=== PATIENT | female | born 1945 | race African-American/Black ===

== ENCOUNTER 2017-01-10 08:49 | Emergency (ER) | payer MEDICARE ==
[2017-01-10] MEDS ORDERED: EPINEPHRINE INJ/PF 1 MG/1 ML AMPULE ONE (11:01)
[2017-01-10] MEDS ORDERED: FAMOTIDINE 20 MG TABLET ONE (11:02)
[2017-01-10] MEDS ORDERED: PREDNISONE 10 MG TABLET ONE (11:02)
== END 2017-01-10 12:00 | disposition home or self-care (01) ==
LOC: ER 08:49
DX: T78.1XXA Other adverse food reactions, not elsewhere classified, initial encounter (principal); R22.0 Localized swelling, mass and lump, head; X58.XXXA Exposure to other specified factors, initial encounter; E78.5 Hyperlipidemia, unspecified; I10 Essential (primary) hypertension; E11.9 Type 2 diabetes mellitus without complications; Z85.3 Personal history of malignant neoplasm of breast; Z90.710 Acquired absence of both cervix and uterus
CPT/HCPCS: 96372; 99283

== ENCOUNTER → 2017-08-17 | Outpatient (CLI) | payer MEDICARE | LOC: WI 08:07 | PROVIDERS: ATTEND Internal Medicine Geriatric Medicine | DX: Z12.31 Encounter for screening mammogram for malignant neoplasm of breast (principal) | CPT/HCPCS: 77063; G0202; 77067 ==

== ENCOUNTER → 2017-10-09 | Outpatient (CLI) | payer MEDICARE ==
--- NOTE | 2017-10-09 15:21 | RADIOLOGY REPORT (SQ) ---
EXAM DESCRIPTION: CT ABD/PELVIS WITH IV ORAL COMPLETED DATE/TIME: 10/09/2017 3:00 pm REASON FOR STUDY: ABDOMINAL PAIN R10.9 UNSPECIFIED ABDOMINAL PAIN COMPARISON: None. TECHNIQUE: CT scan of the abdomen and pelvis performed with intravenous and oral contrast using priyank froylan scanning technique with dynamic intravenous contrast injection. Images reviewed with lung, soft t issue, and bone windows. Reconstructed coronal and sagittal MPR images reviewed. Delayed images for e valuation of the urinary system also acquired. All images stored on PACS. All CT scanners at this facility use dose modulation, iterative reconstruction, and/or weight based d osing when appropriate to reduce radiation dose to as low as reasonably achievable (ALARA). [facility]: Dose Right [facility]: CareDose [facility]: Dose Right [facility]: Teradose 4D [facility]: English Helper CONTRAST TYPE AND DOSE: contrast/concentration: Isovue 370.00 mg/ml; Total Contrast Delivered: 75.0 ml; Total Saline Delivered: 64.0 ml RENAL FUNCTION: Creatinine 0.7. RADIATION DOSE: CT Rad equipment meets quality standard of care and radiation dose reduction techniq ues were employed. CTDIvol: 7.8 - 9.1 mGy. DLP: 835 mGy-cm.. LIMITATIONS: None. FINDINGS: LOWER CHEST: No significant findings. No nodules or infiltrates. LIVER: Normal size. Diffuse fatty infiltration. No masses. No dilated ducts. SPLEEN: Normal size. No focal lesions. PANCREAS: No masses. No significant calcifications. No adjacent inflammation or peripancreatic fluid collections. Pancreatic duct not dilated. GALLBLADDER: No identified stones by CT criteria. No inflammatory changes to suggest cholecystitis. ADRENAL GLANDS: No significant masses or asymmetry. RIGHT KIDNEY AND URETER: 2.5 cm cortical cyst in the upper pole. No solid masses. Punctate upper po le calyceal calculus. No hydronephrosis or hydroureter. LEFT KIDNEY AND URETER: No solid masses. No significant calcification. No hydronephrosis or hydrouret er. AORTA AND VESSELS: No aneurysm. No dissection. Renal arteries, SMA, celiac without stenosis. RETROPERITONEUM: No retroperitoneal adenopathy, hemorrhage or masses. BOWEL AND PERITONEAL CAVITY: No obstruction. No visualized masses. No free fluid. No inflammatory ch anges or thickening of bowel wall. APPENDIX: Normal. PELVIS: No significant masses. Normal bladder. No free fluid. ABDOMINAL WALL: No masses. No hernias. BONES: No significant or acute findings. OTHER: No other significant finding. IMPRESSION: 1. TINY NONOBSTRUCTING CALYCEAL CALCULUS IN THE UPPER POLE OF THE RIGHT KIDNEY. INCIDENTAL CORTICAL CYST. 2. NO OTHER SIGNIFICANT OR ACUTE FINDINGS IN THE ABDOMEN OR PELVIS. TECHNICAL DOCUMENTATION: JOB ID: [id number] Quality ID # [id number]: Final reports with documentation of one or more dose reduction techniques (e.g., Au tomated exposure control, adjustment of the mA and/or kV according to patient size, use of iterative reconstruction technique) 2010 [employer]- All Rights Reserved
== END ==
LOC: RAD 11:42
PROVIDERS: ATTEND Internal Medicine Geriatric Medicine
DX: R10.9 Unspecified abdominal pain (principal); N20.0 Calculus of kidney; N28.1 Cyst of kidney, acquired
CPT/HCPCS: 74177; 82565

== ENCOUNTER 2017-10-30 03:25 | Inpatient (IN) | payer MEDICARE ==
[2017-10-30] MEDS ORDERED: FAMOTIDINE INJ/PF 20 MG/2 ML SDV IV ONE ×2 (03:33→03:36)
[2017-10-30] MEDS ORDERED: DIPHENHYDRAMINE HCL 50 MG/ML VIAL IV ONE ×2 (03:33→10:45)
[2017-10-30] MEDS ORDERED: NORMAL SALINE 250 ML IV PRN ×2 (03:33→04:56)
[2017-10-30] MEDS ORDERED: EPINEPHRINE INJ/PF 1 MG/1 ML AMPULE IM ONE ×2 (03:33→04:40)
[2017-10-30] MEDS ORDERED: METHYLPREDNISOLONE INJ 125 MG/2 ML SDV IV ONE ×2 (03:33→08:30)
[2017-10-30] MEDS ORDERED: EPINEPHRINE INJ/PF 1 MG/1 ML AMPULE ONE (03:36)
[2017-10-30] MEDS ORDERED: METHYLPREDNISOLONE INJ 125 MG/2 ML SDV ONE (03:36)
[2017-10-30] MEDS ORDERED: DIPHENHYDRAMINE HCL 50 MG/ML VIAL ONE (03:36)
--- NOTE | 2017-10-30 03:40 | ER Document Report ---
Doctor's Note Notes: 10/30/17 03:38 Patient has severe angioedema with her tongue on to the point was fully obstructing her mouth and I cannot see beyond her tongue. She is not handling her secretions well. I have called the surgeon, Dr. Garrison, asked him to come the bedside in case patient needs surgical airway. I have also called the nursing supervisor electronics processing to call and anesthesia to try a nasal intubation with scope. Nursing supervisor electronics processing did call back and said anesthesia would be her in 5 minutes. 10/30/17 03:53
[2017-10-30] MEDS ORDERED: KETAMINE HCL INJ 500 MG/10 ML VIAL IV ONE (03:45)
[2017-10-30] MEDS ORDERED: ETOMIDATE INJ/PF 20 MG/10 ML SDV IV ONE ×2 (03:45→03:47)
[2017-10-30] MEDS ORDERED: KETAMINE HCL INJ 500 MG/10 ML VIAL ONE (03:47)
--- NOTE | 2017-10-30 04:25 | ER Document Report ---
ED General - General Chief Complaint: Lip Swelling Stated Complaint: DIFFICULTY BREATHING Time Seen by Provider: 10/30/17 03:33 Notes: Patient is 72-year-old female presents with complaint of difficulty breathing. Is mainly from the . Patient is unable to talk due to severe tongue swelling. She is able to write some things on paper to help give me some further history. She started having some swelling of her lips yesterday. Around midnight she started having tongue swelling. She came to the ER due to the progressing the tongue swelling. She feels as if she cannot swallow her saliva. She feels like it started to affect her breathing. Patient and did not have a med list with them. When I asked them if she is on lisinopril they say that they think that she is. TRAVEL OUTSIDE OF THE [place] IN LAST 30 DAYS: No - Related Data Allergies/Adverse Reactions: No Known Allergies Allergy (Unverified 10/30/17 03:40) Past Medical History - Social History Smoking Status: Unknown if Ever Smoked Frequency of alcohol use: None Drug Abuse: None Family History: Reviewed & Not Pertinent Patient has suicidal ideation: No Patient has homicidal ideation: No - Past Medical History Cardiac Medical History: Reports: Hx Hypercholesterolemia, Hx Hypertension Endocrine Medical History: Reports: Hx Diabetes Mellitus Type 2 Renal/ Medical History: Denies: Hx Peritoneal Dialysis GI Medical History: Reports: Hx Gastroesophageal Reflux Disease Review of Systems - Review of Systems Notes: My Normal Review Basic REVIEW OF SYSTEMS: CONSTITUTIONAL : Denies fever, chills, or sweats. Denies recent illness. EENT: Difficulty swallowing and breathing due to tongue swelling. CARDIOVASCULAR: Denies chest pain. RESPIRATORY: Denies cough, cold, or chest congestion. Some shortness of breath due to tongue swelling. GASTROINTESTINAL: Denies abdominal pain. No nausea. MUSCULOSKELETAL: Denies neck or back pain or joint pain or swelling. SKIN: Denies rash or skin lesions. Hives. No itching. NEUROLOGICAL: Denies altered mental status or loss of consciousness. Denies headache. Denies weakness or paralysis or loss of use of either side. Denies problems with gait or speech. Denies sensory or motor loss. ALL OTHER SYSTEMS REVIEWED AND NEGATIVE. Physical Exam - Vital signs Vitals: Temp Pulse Resp BP Pulse Ox 98.9 F 73 13 150/90 H 97 10/30/17 03:56 10/30/17 03:56 10/30/17 03:56 10/30/17 03:56 10/30/17 03:56 - Notes Notes: General Appearance: Well nourished, alert, cooperative, patient is holding a washcloth and continues to wipe her mouth because she cannot swallow her secretions. She lays flat she becomes very short of breath. She sits forward her breathing rate is controlled and she seems to be in control of her breathing. Vitals: reviewed, See vital signs table. Head: no swelling or tenderness to the head Eyes: PERRL, EOMI, Conjuctiva clear Mouth: Patient has very large swollen tongue. When patient opens her mouth I cannot see anything except her tongue. Throat: cannot see posterior pharynx. Neck: Supple, no neck tenderness, Lungs: No wheezing, No rales, No rhonci, No accessory muscle use, good air exchange bilaterally. Heart: Normal rate, Regular rythm, No murmur, no rub Abdomen: Normal BS, soft, No rigidity, No abdominal tenderness, No guarding, no rebound, Extremities: good pulses in all extremities, no swelling or tenderness in the extremities, no edema. Skin: warm, dry, appropriate color, no rash Neuro: oriented x 3, normal affect, responds appropriately to questions.. Course - Re-evaluation Re-evalutation: 10/30/17 04:15 Dr. Garrison, general surgeon, and Dr. Nance, the anestheiologist, came to bedside to evaluate the patient. The have discussed option of taking patient to the OR for surgical airway and also discussed scoping the patient for nasal intubation. They discussed these options with the patient and . At this time they have collected decided to withhold aggessive airway 10/30/17 04:57 Patient says that she now feels that her tongue swelling is a little bit better. She now has a very small gap of space above her tongue when she opens her mouth that she did not have before. I have called Dr. Olivo to request admission. Have not yet heard back. We will continue to closely monitor the patient. I have given the patient the call sands and informed her that if anytime she feels she is worsening even in the slightest she must have the call sands immediately. I will continue to closely reassess the patient. FFP has been ordered and is currently thawing. 10/30/17 05:14 I have spoken with Dr. Olivo. He agrees to admit the patient. 10/30/17 05:56 I just reevaluated the patient. Her tongue is now reduced a significant amount. Swelling is reduced by about half. Dictation of this chart was performed using voice recognition software; therefore, there may be some unintended grammatical errors. - Vital Signs Vital signs: Temp Pulse Resp BP Pulse Ox 98.9 F 73 13 150/90 H 97 10/30/17 03:58 10/30/17 03:58 10/30/17 03:58 10/30/17 03:58 10/30/17 03:58 - Laboratory Result Diagrams: 10/30/17 03:36 10/30/17 03:36 Laboratory results interpreted by me: 10/30/17 10/30/17 03:36 03:36 RDW 15.4 H BUN 21 H Glucose 143 H Discharge - Discharge Clinical Impression: Angioedema Qualifiers: Encounter type: initial encounter Qualified Code(s): T78.3XXA - Angioneurotic edema, initial encounter Condition: Stable Disposition: ADMITTED INPATIENT Admitting Provider: Pallavi Unit Admitted: ICU
[2017-10-30 05:27] LABS: ABSOLUTE BASOPHILS # (AUTO) 0.1 10^3/uL (0.0-0.2); ABSOLUTE EOSINOPHILS # (AUTO) 0.1 10^3/uL (0.0-0.6); ABSOLUTE LYMPHOCYTES (AUTO) 2.2 10^3/uL (0.5-4.7); ABSOLUTE MONOCYTES (AUTO) 0.5 10^3/uL (0.1-1.4); ABSOLUTE NEUT (AUTO) 4.5 10^3/uL (1.7-8.2); BASOPHILS % (AUTO) 0.9 % (0-2); EOSINOPHILS % (AUTO) 1.4 % (0-6); HEMATOCRIT 45.7 % (36.0-47.0); LYMPHOCYTES % (AUTO) 29.1 % (13-45); MEAN CORPUSCULAR HEMOGLOBIN 28.9 pg (27.0-33.4); MEAN CORPUSCULAR HGB CONC 32.8 g/dL (32.0-36.0); MEAN CORPUSCULAR VOLUME 88 fl (80-97); MONOCYTES % (AUTO) 7.3 % (3-13); PLATELET COUNT 178 10^3/uL (150-450); RED BLOOD COUNT 5.19 10^6/uL (3.72-5.28); RED CELL DISTRIBUTION WIDTH 15.4 % (11.5-14.0); SEGMENTED NEUTROPHILS % (AUTO) 61.3 % (42-78); TOTAL CELLS COUNTED % (AUTO) 100 %; WHITE BLOOD COUNT 7.4 10^3/uL (4.0-10.5)
[2017-10-30 05:37] LABS: ANION GAP 12 (5-19); BLOOD UREA NITROGEN 21 mg/dL (7-20); CALCIUM 10.2 mg/dL (8.4-10.2); CARBON DIOXIDE 30 mmol/L (22-30); CHLORIDE 102 mmol/L (98-107); GLUCOSE 143 mg/dL (75-110); SODIUM 144.2 mmol/L (137-145)
--- NOTE | 2017-10-30 06:35 | CONSULTATION REPORT E ---
Consultation Report NAME: SHARDA BENSON : 1945 AGE: 72Y DATE: 10/30/2017 ED23 A TO: SHARON MELENDEZ M.D. FROM: KRYSTINA RIVERA M.D. Requesting Physician Patient seen at the request of Dr. Albert Hope. CHIEF COMPLAINT: Potential loss of airway due to angioedema. REPORT OF CONSULTATION: The patient is a 72-year-old -[place] female with a history of diabetes, hypertension, hypercholesterolemia with a previous known history of angioedema felt secondary to lisinopril, who presented to the emergency department with swelling of the lips and tongue. She was brought by a ground rescue to the emergency department at [facility] where she could not speak, and had significant swelling of her lips and tongue. Surgery and Anesthesia were consulted. When I arrived in the emergency department, approximately 15 minutes after the patient's arrival to [place], the patient had received racemic epi, Benadryl, and Solu-Medrol. The patient was anxious, but in no acute distress. Consultation was had between the emergency department, Anesthesia, and Surgery, and the decision was made to not attempt to intubate the patient as she was maintaining her airway satisfactorily and not clinically deteriorating. PAST MEDICAL AND SURGICAL HISTORY: As per HPI. Patient has a history of previous angioedema flareup managed without intubation. LOCAL MEDICAL DOCTOR: Dr. Rivera MEDICATIONS: Include lisinopril. ALLERGIES: None known. SOCIAL HISTORY: The patient does not smoke. REVIEW OF SYSTEMS: Cannot be obtained as patient cannot communicate except by writing. PHYSICAL EXAMINATION: VITAL SIGNS: Blood pressure 150/90, temperature 98.9, pulse 73, oxygen saturation on room air 97%. GENERAL: The patient is awake, alert, and cooperative. She is mildly anxious. She followed commands appropriately. HEENT: Eyes without icterus. There is [id number] swelling of the lips and tongue, such that the oropharynx can be examined only by pushing the tongue caudad. The patient cannot phonate. She is spitting up some mucus. The nasal cavity appears uninvolved. NECK: The patient's neck is examined. There is no edema or crepitus. The larynx appears midline. LUNGS: Clear to auscultation bilaterally. HEART: Without murmur or gallop. The remaining examination is grossly unremarkable. LABORATORY PROFILE: Pending. IMPRESSION: Acute laryngioedema with threatened, but not loss of airway in 72-year-old -[place] female on lisinopril; second episode. RECOMMENDATIONS: 1. I have observed the patient now for approximately 40 minutes in the emergency department with Dr. Hope. The patient remains in no acute distress, calm, and feels her breathing is a little bit better. Furthermore, she does not desaturate when her head of bed is lowered. Clinically, the amount of tongue and lip edema is no worse and may be a little bit better after receiving the emergency medications. 2. Therefore, with Dr. Nance, anesthesiologist, as well as forestry biology specialist present, we have elected to not mechanically establish an airway for this patient at this time. We recommend the patient be admitted to the ICU for continued observation, and scheduled doses of steroids. DICTATING PHYSICIAN: SHARON MELENDEZ M.D. [id number] PHY#: [id number] ID: [id number] JOB#: [id number] ACCT: [id number] cc:SHARON MELENDEZ M.D. >
[2017-10-30] MEDS ORDERED: DEXTROSE 50%-WATER 25 GM/50 ML DISP.SYRIN IV PRN ×2 (07:55)
[2017-10-30] MEDS ORDERED: GLUCAGON,HUMAN RECOMB 1 MG INJ SUBCUT PRN (07:55)
[2017-10-30] MEDS ORDERED: DEXTROSE 40% GEL 15 GM TUBE PO PRN ×2 (07:55)
[2017-10-30] MEDS ORDERED: DIPHENHYDRAMINE HCL 25 MG CAPSULE PO SCH (08:00)
--- NOTE | 2017-10-30 08:40 | PDOC H&P ---
History of Present Illness Admission Date/PCP: 10/30/17 05:31 KRYSTINA RIVERA MD Patient complains of: Difficulty with breathing History of Present Illness: SHARDA BENSON is a 72 year old female known to my practice who presented to the ED early hours of today with worsening tong and lip swelling and associated difficulty with breathing. Patient reported onset of lip swelling a day prior to presentation and worsening tongue swelling to the point of difficulty with speaking and breathing. Her presentation in the ED was significant for difficulty with breathing with near complete occlusion of the airway and difficulty with control of salivation. She was initially treated with Epinephrine, Pepcid and IV Solu-Medrol with some improvement that avert intubation procedure. She denied recent use of OTC NSAID. She reported family and self history of angioedema after consumption of shrimps. She has been on her current anti HTN medication including Valsartan for many years. Not currently on LAZARO-I. She admitted to eating shrimp on preceding Sunday and Sunday prior to her presentation her presentation. At the time of my evaluation she was not able to verbalize adequately but her lip and tongue swelling are improving as per her and spouse account at bedside. Her morbidities include Hypertension, Hyperlipidemia, Diabetes Mellitus Type 2, and Gastroesophageal Reflux Disease. Past Medical History Cardiac Medical History: Reports: Hyperlipidema, Hypertension Endocrine Medical History: Reports: Diabetes Mellitus Type 2 GI Medical History: Reports: Gastroesophageal Reflux Disease Social History Smoking Status: Unknown if Ever Smoked Family History Family History: Reviewed & Not Pertinent Parental Family History Reviewed: Yes Children Family History Reviewed: Yes Sibling(s) Family History Reviewed.: Yes Medication/Allergy Home Medications: Alprazolam [Xanax 0.25 mg Tablet] 0.25 mg PO DAILYP PRN 10/30/17 Amlodipine Besylate [Norvasc 5 mg Tablet] 5 mg PO DAILY 10/30/17 Aspirin [Ecotrin 81 mg EC Tablet] 81 mg PO QHS 10/30/17 Atorvastatin Calcium [Lipitor 20 mg Tablet] 20 mg PO QHS 10/30/17 Calcium Carbonate/Vitamin D3 [Calcium 600 + Vit D Tablet] 1 tab PO QAM 10/30/17 Citalopram Hydrobromide [Celexa 10 mg Tablet] 10 mg PO QHS 10/30/17 Fluticasone Propionate [Flonase Nasal Sultan 50 Mcg/Sultan 16 gm] 2 spray NASL DAILY 10/30/17 Metformin HCl [Glucophage 500 mg Tablet] 500 mg PO BID 10/30/17 Metoprolol Tartrate [Lopressor 50 mg Tablet] 50 mg PO Q12 10/30/17 Multivitamin [Tab-A-Makeda (Multiple Vitamin) Tablet] 1 tab PO QAM 10/30/17 Pantoprazole Sodium [Protonix] 40 mg PO DAILY 10/30/17 Polyethylene Glycol 3350 [Miralax Powder 17 gm/Packet] 17 gm PO DAILY 10/30/17 Pyridoxine HCl [Vitamin B-6] 100 mg PO DAILY 10/30/17 Tramadol HCl [Ultram 50 mg Tablet] 50 mg PO DAILYP PRN 10/30/17 Valsartan/Hydrochlorothiazide [Valsartan-Hctz 320-12.5 mg Tab] 1 tab PO DAILY Allergies/Adverse Reactions: No Known Allergies Allergy (Unverified 10/30/17 03:40) Review of Systems Constitutional: ABSENT: chills, fever(s), headache(s), weight gain, weight loss Eyes: ABSENT: visual disturbances Ears: ABSENT: hearing changes Nose, Mouth, and Throat: ABSENT: as per HPI, headache(s), mouth pain, sore throat, vertigo, other Cardiovascular: ABSENT: chest pain, dyspnea on exertion, edema, orthropnea, palpitations Respiratory: ABSENT: cough, hemoptysis Gastrointestinal: ABSENT: abdominal pain, constipation, diarrhea, hematemesis, hematochezia, nausea, vomiting Genitourinary: ABSENT: dysuria, hematuria Musculoskeletal: ABSENT: joint swelling Integumentary: ABSENT: rash, wounds Neurological: PRESENT: abnormal speech - due to tongue swelling. ABSENT: as per HPI, abnormal gait, abnormal movements, confusion, convulsions, dizziness, focal weakness, frequent falls, lack of coordination, memory loss, numbness, paresthesias, restless legs, syncope, tingling, tremor(s), vertigo, weakness, other Psychiatric: PRESENT: anxiety - related to her difficulty with breathing. ABSENT: as per HPI, depression, hallucinations, homidical ideation, suicidal ideation, other Endocrine: ABSENT: cold intolerance, heat intolerance, polydipsia, polyuria Hematologic/Lymphatic: ABSENT: easy bleeding, easy bruising, lymphadenopathy Physical Exam Vital Signs: Temp Pulse Resp BP Pulse Ox 98.0 F 89 18 122/67 98 10/30/17 07:43 10/30/17 06:50 10/30/17 07:43 10/30/17 07:43 10/30/17 07:43 Intake & Output 10/29/17 10/30/17 10/31/17 06:59 06:59 06:59 Intake Total 296 Balance 296 General appearance: PRESENT: cooperative, mild distress - due to tongue and lip swelling Head exam: PRESENT: atraumatic, normocephalic Eye exam: PRESENT: conjunctiva pink, EOMI, PERRLA. ABSENT: scleral icterus Ear exam: PRESENT: normal external ear exam Mouth exam: PRESENT: moist - with some amount of excessive salivation. ABSENT: tongue midline - swollen and obstructing visualization of oropharyngeal region at this time Neck exam: PRESENT: full ROM. ABSENT: carotid bruit, JVD, lymphadenopathy, thyromegaly Respiratory exam: PRESENT: clear to auscultation [place] Cardiovascular exam: PRESENT: RRR. ABSENT: diastolic murmur, rubs, systolic murmur Vascular exam: PRESENT: normal capillary refill. ABSENT: pallor GI/Abdominal exam: PRESENT: normal bowel sounds, soft. ABSENT: distended, guarding, mass, organolmegaly, rebound, tenderness Rectal exam: PRESENT: deferred Extremities exam: ABSENT: pedal edema Musculoskeletal exam: PRESENT: normal inspection Neurological exam: PRESENT: alert, awake, oriented to person, oriented to place , oriented to time, oriented to situation, CN II-XII grossly intact. ABSENT: motor sensory deficit Psychiatric exam: PRESENT: appropriate affect, normal mood. ABSENT: homicidal ideation, suicidal ideation Skin exam: PRESENT: dry, intact, warm. ABSENT: cyanosis, rash Results Laboratory Results: Reviewed on [employer] and form significant part of my medical decision making. Assessment & Plan - Diagnosis (1) Angioedema Qualifiers: Encounter type: initial encounter Qualified Code(s): T78.3XXA - Angioneurotic edema, initial encounter Is this a current diagnosis for this admission?: Yes Plan: See attending physician orders. (2) HTN (hypertension) Qualifiers: Hypertension type: essential hypertension Qualified Code(s): I10 - Essential (primary) hypertension Is this a current diagnosis for this admission?: Yes Plan: See attending physician orders. (3) HLD (hyperlipidemia) Qualifiers: Hyperlipidemia type: pure hypercholesterolemia Qualified Code(s): E78.00 - Pure hypercholesterolemia, unspecified; E78.0 - Pure hypercholesterolemia Is this a current diagnosis for this admission?: Yes Plan: See attending physician orders. (4) Diabetes mellitus type 2 in nonobese Is this a current diagnosis for this admission?: Yes Plan: See attending physician orders. (5) GERD (gastroesophageal reflux disease) Qualifiers: Esophagitis presence: without esophagitis Qualified Code(s): K21.9 - Gastro -esophageal reflux disease without esophagitis Is this a current diagnosis for this admission?: Yes Plan: See attending physician orders. - Time Time Spent: 50 to 70 Minutes Medications reviewed and adjusted accordingly: Yes Anticipated discharge: Home Within: Other - Inpatient Certification Based on my medical assessment, after consideration of the patient's comorbidities, presenting symptoms, or acuity I expect that the services needed warrant INPATIENT care.: Yes I certify that my determination is in accordance with my understanding of Medicare's requirements for reasonable and necessary INPATIENT services [42 CFR 412.3e].: Yes Medical Necessity: Need Close Monitoring Due to Risk of Patient Decompensation, Need For IV Fluids, Need For Continuous Telemetry Monitoring, Risk of Complication if Not Cared For in Hospital Post Hospital Care: D/C Senior Control Systems Engineer Documentation - Plan Summary Plan Summary: See attending physician orders.
[2017-10-30] MEDS ORDERED: ENOXAPARIN SODIUM INJ 40 MG/0.4 ML DISP.SYRIN SUBCUT ONE (10:45)
[2017-10-30 11:02] LABS: INTERNATIONAL RATION (INR) 0.94; PROTHROMBIN TIME 13.3 SEC (11.4-15.4)
[2017-10-30] MEDS: ENOXAPARIN SODIUM INJ 40 MG/0.4 ML DISP.SYRIN SUBCUT SCH (11:02)
[2017-10-30] MEDS: FAMOTIDINE INJ/PF 20 MG/2 ML SDV IV SCH ×2 (11:02→21:21)
[2017-10-30 11:03] LABS: PARTIAL THROMBOPLASTIN TIME 29.2 SEC (23.5-35.8)
[2017-10-30] MEDS ORDERED: METHYLPREDNISOLONE INJ 40 MG/1 ML SDV IV SCH (14:00)
[2017-10-30] MEDS: METHYLPREDNISOLONE INJ 125 MG/2 ML SDV IV SCH ×2 (15:01→21:21)
[2017-10-30] MEDS: DIPHENHYDRAMINE HCL 50 MG/ML VIAL IV SCH ×2 (15:02→20:25)
[2017-10-30] MEDS: NORMAL SALINE 1000 ML 1,000 ML IV PRN (16:07)
[2017-10-31] MEDS: DIPHENHYDRAMINE HCL 50 MG/ML VIAL IV SCH ×4 (02:18→21:54)
[2017-10-31] MEDS: METHYLPREDNISOLONE INJ 125 MG/2 ML SDV IV SCH (06:26)
[2017-10-31] MEDS ORDERED: TRAMADOL HCL 50 MG TABLET PO PRN (08:22)
--- NOTE | 2017-10-31 08:31 | PDOC PROGRESS REPORT ---
Subjective Progress Note for:: 10/31/17 Subjective:: She denied any choking feeling or excessive saliva collection in mouth. She was able to sleep satisfactorily since last clinical evaluation. No chest pain or difficulty with breathing. No fever or chills. Blood pressure remain satisfactory. No fever or chills. Reason For Visit: SEVERE ANGIOEDEMA Physical Exam Vital Signs: Temp Pulse Resp BP Pulse Ox 98.7 F 86 16 113/60 98 10/31/17 05:26 10/31/17 07:00 10/31/17 05:26 10/31/17 05:26 10/31/17 05:26 Intake & Output 10/30/17 10/31/17 11/01/17 06:59 06:59 06:59 Intake Total 1053 Balance 1053 Weight 67.7 kg General appearance: PRESENT: no acute distress, well-developed, well-nourished Head exam: PRESENT: atraumatic, normocephalic Eye exam: PRESENT: conjunctiva pink, EOMI, PERRLA. ABSENT: scleral icterus Mouth exam: PRESENT: moist, tongue midline - with significant improvement in swelling with visualization of the oropharyngeal region although uvula is no in sight. Throat exam: ABSENT: post pharyngeal erythema, tonsillar erythema, tonsillar exudate, tonsillogmegaly Respiratory exam: PRESENT: clear to auscultation [place] Cardiovascular exam: PRESENT: RRR. ABSENT: diastolic murmur, rubs, systolic murmur GI/Abdominal exam: PRESENT: normal bowel sounds, soft. ABSENT: distended, guarding, mass, organolmegaly, rebound, tenderness Extremities exam: ABSENT: pedal edema Musculoskeletal exam: PRESENT: normal inspection Neurological exam: PRESENT: alert, awake, oriented to person, oriented to place , oriented to time, oriented to situation, CN II-XII grossly intact. ABSENT: motor sensory deficit Psychiatric exam: PRESENT: appropriate affect, normal mood. ABSENT: homicidal ideation, suicidal ideation Skin exam: PRESENT: dry, intact, warm. ABSENT: cyanosis, rash Assessment & Plan - Diagnosis (1) Angioedema Qualifiers: Encounter type: initial encounter Qualified Code(s): T78.3XXA - Angioneurotic edema, initial encounter Is this a current diagnosis for this admission?: Yes (2) HTN (hypertension) Qualifiers: Hypertension type: essential hypertension Qualified Code(s): I10 - Essential (primary) hypertension Is this a current diagnosis for this admission?: Yes (3) HLD (hyperlipidemia) Qualifiers: Hyperlipidemia type: pure hypercholesterolemia Qualified Code(s): E78.00 - Pure hypercholesterolemia, unspecified; E78.0 - Pure hypercholesterolemia Is this a current diagnosis for this admission?: Yes (4) Diabetes mellitus type 2 in nonobese Is this a current diagnosis for this admission?: Yes (5) GERD (gastroesophageal reflux disease) Qualifiers: Esophagitis presence: without esophagitis Qualified Code(s): K21.9 - Gastro -esophageal reflux disease without esophagitis Is this a current diagnosis for this admission?: Yes - Time Time Spent with patient: 25-34 minutes Medications reviewed and adjusted accordingly: Yes Anticipated discharge: Home Within: Other - Inpatient Certification Based on my medical assessment, after consideration of the patient's comorbidities, presenting symptoms, or acuity I expect that the services needed warrant INPATIENT care.: Yes I certify that my determination is in accordance with my understanding of Medicare's requirements for reasonable and necessary INPATIENT services [42 CFR 412.3e].: Yes Medical Necessity: Need Close Monitoring Due to Risk of Patient Decompensation, Need For IV Fluids, Need For Continuous Telemetry Monitoring, Risk of Complication if Not Cared For in Hospital Post 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 Patient will resume oral feeding and restart some of her preadmission medications. Decrease IV Solu-Medrol. Obtain BMP.
[2017-10-31] MEDS: FAMOTIDINE 20 MG TABLET PO SCH ×2 (09:46→21:54)
[2017-10-31] MEDS: PYRIDOXINE HCL 50 MG TABLET PO SCH (09:46)
[2017-10-31 09:50] LABS: ANION GAP 11 (5-19); BLOOD UREA NITROGEN 20 mg/dL (7-20); CALCIUM 9.2 mg/dL (8.4-10.2); CARBON DIOXIDE 22 mmol/L (22-30); CHLORIDE 112 mmol/L (98-107); GLUCOSE 168 mg/dL (75-110); POTASSIUM 3.5 mmol/L (3.6-5.0); SODIUM 144.9 mmol/L (137-145)
[2017-10-31] MEDS: ENOXAPARIN SODIUM INJ 40 MG/0.4 ML DISP.SYRIN SUBCUT SCH (09:51)
[2017-10-31] MEDS: POLYETHYLENE GLYCOL 3350 POWDER 17 GM/1 PACKET PO SCH (09:51)
[2017-10-31] MEDS: FLUTICASONE NASAL SPRAY 50 MCG/SPRY 120 SPRAY/16 GM NASL SCH (09:53)
[2017-10-31] MEDS ORDERED: (PENDING PHARMACY ID) (Pyridoxine Hcl [Vitamin B-6] 100 MG) PO SCH (10:00)
[2017-10-31] MEDS ORDERED: METFORMIN HCL 500 MG TABLET PO ONE (10:00)
[2017-10-31] MEDS ORDERED: INSULIN LISPRO 100 UNIT/ML 3 ML VIAL SUBCUT PRN (13:29)
[2017-10-31] MEDS: METHYLPREDNISOLONE INJ 40 MG/1 ML SDV IV SCH ×2 (15:43→21:54)
[2017-10-31] MEDS: NORMAL SALINE 1000 ML 1,000 ML IV PRN (16:54)
[2017-10-31] MEDS ORDERED: METFORMIN HCL 500 MG TABLET PO SCH (17:00)
[2017-10-31] MEDS: METFORMIN HCL 500 MG TABLET PO SCH (18:16)
[2017-10-31] MEDS: ASPIRIN 81 MG TABLET, ENT COATED PO SCH (21:54)
[2017-10-31] MEDS: ATORVASTATIN CALCIUM 20 MG TABLET PO SCH (21:55)
[2017-10-31] MEDS: CITALOPRAM HYDROBROMIDE 20 MG TABLET PO SCH (21:55)
[2017-10-31] MEDS ORDERED: (PENDING PHARMACY ID) (Citalopram Hydrobromide [Celexa 10 Mg Tablet] 10 MG) PO SCH (22:00)
[2017-11-01] MEDS: DIPHENHYDRAMINE HCL 50 MG/ML VIAL IV SCH (03:41)
[2017-11-01] MEDS: METHYLPREDNISOLONE INJ 40 MG/1 ML SDV IV SCH ×2 (05:17→19:16)
[2017-11-01] MEDS ORDERED: DIPHENHYDRAMINE HCL 25 MG CAPSULE PO PRN (08:07)
--- NOTE | 2017-11-01 08:12 | PDOC PROGRESS REPORT ---
Subjective Progress Note for:: 11/01/17 Subjective:: No chest pain or difficulty with breathing. Tongue and lip swelling significantly improved. No fever or chills. Blood pressure remain satisfactory. No fever or chills. Reason For Visit: SEVERE ANGIOEDEMA Physical Exam Vital Signs: Temp Pulse Resp BP Pulse Ox 98.9 F 58 L 16 125/59 L 96 10/31/17 19:56 11/01/17 02:00 10/31/17 19:56 10/31/17 19:56 10/31/17 19:56 Intake & Output 10/31/17 11/01/17 11/02/17 06:59 06:59 06:59 Intake Total 1053 1814 Balance 1053 1814 Weight 67.7 kg Physical Exam: General appearance: PRESENT: no acute distress, well-developed, well-nourished Head exam: PRESENT: atraumatic, normocephalic Eye exam: PRESENT: conjunctiva pink, EOMI, PERRLA. ABSENT: scleral icterus Mouth exam: PRESENT: PRESENT: Moist. ABSENT: Tongue swelling Throat exam: ABSENT: post pharyngeal erythema, tonsillar erythema, tonsillar exudate, tonsillogmegaly Respiratory exam: PRESENT: clear to auscultation [place] Cardiovascular exam: PRESENT: RRR. ABSENT: diastolic murmur, rubs, systolic murmur GI/Abdominal exam: PRESENT: normal bowel sounds, soft. ABSENT: distended, guarding, mass, organolmegaly, rebound, tenderness Extremities exam: ABSENT: pedal edema Musculoskeletal exam: PRESENT: normal inspection Neurological exam: PRESENT: alert, awake, oriented to person, oriented to place , oriented to time, oriented to situation, CN II-XII grossly intact. ABSENT: motor sensory deficit Psychiatric exam: PRESENT: appropriate affect, normal mood. ABSENT: homicidal ideation, suicidal ideation Skin exam: PRESENT: dry, intact, warm. ABSENT: cyanosis, rash Results Laboratory Results: 10/31/17 08:49 10/31/17 08:49 Sodium 144.9 Potassium 3.5 L Chloride 112 H Carbon Dioxide 22 Anion Gap 11 BUN 20 Creatinine 0.69 Est GFR ( Amer) > 60 Est GFR (Non-Af Amer) > 60 Glucose 168 H Calcium 9.2 Assessment & Plan - Diagnosis (1) Angioedema Qualifiers: Encounter type: initial encounter Qualified Code(s): T78.3XXA - Angioneurotic edema, initial encounter Is this a current diagnosis for this admission?: Yes (2) HTN (hypertension) Qualifiers: Hypertension type: essential hypertension Qualified Code(s): I10 - Essential (primary) hypertension Is this a current diagnosis for this admission?: Yes (3) HLD (hyperlipidemia) Qualifiers: Hyperlipidemia type: pure hypercholesterolemia Qualified Code(s): E78.00 - Pure hypercholesterolemia, unspecified; E78.0 - Pure hypercholesterolemia Is this a current diagnosis for this admission?: Yes (4) Diabetes mellitus type 2 in nonobese Is this a current diagnosis for this admission?: Yes (5) GERD (gastroesophageal reflux disease) Qualifiers: Esophagitis presence: without esophagitis Qualified Code(s): K21.9 - Gastro -esophageal reflux disease without esophagitis Is this a current diagnosis for this admission?: Yes - Time Time Spent with patient: 25-34 minutes Medications reviewed and adjusted accordingly: Yes Anticipated discharge: Home Within: Other - Inpatient Certification Based on my medical assessment, after consideration of the patient's comorbidities, presenting symptoms, or acuity I expect that the services needed warrant INPATIENT care.: Yes I certify that my determination is in accordance with my understanding of Medicare's requirements for reasonable and necessary INPATIENT services [42 CFR 412.3e].: Yes Medical Necessity: Need Close Monitoring Due to Risk of Patient Decompensation, Need For Continuous Telemetry Monitoring, Risk of Complication if Not Cared For in Hospital 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 Change Benadryl to oral route. Follow up on IgE shrimp specific level. Continue all other current medication management.
[2017-11-01] MEDS: FAMOTIDINE 20 MG TABLET PO SCH ×2 (09:33→21:19)
[2017-11-01] MEDS: MULTIVITAMIN TABLET PO SCH (09:33)
[2017-11-01] MEDS: PYRIDOXINE HCL 50 MG TABLET PO SCH (09:33)
[2017-11-01] MEDS: ENOXAPARIN SODIUM INJ 40 MG/0.4 ML DISP.SYRIN SUBCUT SCH (09:34)
[2017-11-01] MEDS: METFORMIN HCL 500 MG TABLET PO SCH ×2 (09:34→18:06)
[2017-11-01] MEDS: FLUTICASONE NASAL SPRAY 50 MCG/SPRY 120 SPRAY/16 GM NASL SCH (09:35)
[2017-11-01] MEDS: POLYETHYLENE GLYCOL 3350 POWDER 17 GM/1 PACKET PO SCH (09:36)
[2017-11-01] MEDS: CITALOPRAM HYDROBROMIDE 20 MG TABLET PO SCH (21:19)
[2017-11-01] MEDS: ASPIRIN 81 MG TABLET, ENT COATED PO SCH (21:19)
[2017-11-01] MEDS: ATORVASTATIN CALCIUM 20 MG TABLET PO SCH (21:19)
[2017-11-02] MEDS: METHYLPREDNISOLONE INJ 40 MG/1 ML SDV IV SCH (06:04)
[2017-11-02] MEDS: PYRIDOXINE HCL 50 MG TABLET PO SCH (09:42)
[2017-11-02] MEDS: FAMOTIDINE 20 MG TABLET PO SCH (09:42)
[2017-11-02] MEDS: MULTIVITAMIN TABLET PO SCH (09:43)
[2017-11-02] MEDS: POLYETHYLENE GLYCOL 3350 POWDER 17 GM/1 PACKET PO SCH (09:44)
[2017-11-02] MEDS: ENOXAPARIN SODIUM INJ 40 MG/0.4 ML DISP.SYRIN SUBCUT SCH (09:44)
[2017-11-02] MEDS: METFORMIN HCL 500 MG TABLET PO SCH (09:44)
[2017-11-02] MEDS: FLUTICASONE NASAL SPRAY 50 MCG/SPRY 120 SPRAY/16 GM NASL SCH (09:45)
[2017-11-02 16:37] VITALS: BP 153/84
--- NOTE | 2017-11-07 13:43 | PDOC DISCHARGE SUMMARY ---
General - Admit/Disc Date/PCP Admission Date/Primary Care Provider: 10/30/17 07:54 KRYSTINA RIVERA Discharge Date: 11/02/17 - Discharge Diagnosis (1) Angioedema Is this a current diagnosis for this admission?: Yes (2) HTN (hypertension) Is this a current diagnosis for this admission?: Yes (3) HLD (hyperlipidemia) Is this a current diagnosis for this admission?: Yes (4) Diabetes mellitus type 2 in nonobese Is this a current diagnosis for this admission?: Yes (5) GERD (gastroesophageal reflux disease) Is this a current diagnosis for this admission?: Yes - Additional Information Resuscitation Status: Full Code Home Medications: Alprazolam [Xanax 0.25 mg Tablet] 0.25 mg PO DAILYP PRN 10/30/17 Amlodipine Besylate [Norvasc 5 mg Tablet] 5 mg PO DAILY 10/30/17 Aspirin [Ecotrin 81 mg EC Tablet] 81 mg PO QHS 10/30/17 Atorvastatin Calcium [Lipitor 20 mg Tablet] 20 mg PO QHS 10/30/17 Calcium Carbonate/Vitamin D3 [Calcium 600 + Vit D Tablet] 1 tab PO QAM 10/30/17 Citalopram Hydrobromide [Celexa 10 mg Tablet] 10 mg PO QHS 10/30/17 Fluticasone Propionate [Flonase Nasal [place] 50 Mcg/[place] 16 gm] 2 spray NASL DAILY 10/30/17 Metformin HCl [Glucophage 500 mg Tablet] 500 mg PO BID 10/30/17 Metoprolol Tartrate [Lopressor 50 mg Tablet] 50 mg PO Q12 10/30/17 Multivitamin [Tab-A-Makeda (Multiple Vitamin) Tablet] 1 tab PO QAM 10/30/17 Pantoprazole Sodium [Protonix] 40 mg PO DAILY 10/30/17 Polyethylene Glycol 3350 [Miralax Powder 17 gm/Packet] 17 gm PO DAILY 10/30/17 Pyridoxine HCl [Vitamin B-6] 100 mg PO DAILY 10/30/17 Tramadol HCl [Ultram 50 mg Tablet] 50 mg PO DAILYP PRN 10/30/17 Valsartan/Hydrochlorothiazide [Valsartan-Hctz 320-12.5 mg Tab] 1 tab PO DAILY History of Present Illness History of Present Illness: SHARDA BENSON is a 72 year old female known to my practice who presented to the ED early hours of today with worsening tong and lip swelling and associated difficulty with breathing. Patient reported onset of lip swelling a day prior to presentation and worsening tongue swelling to the point of difficulty with speaking and breathing. Her presentation in the ED was significant for difficulty with breathing with near complete occlusion of the airway and difficulty with control of salivation. She was initially treated with Epinephrine, Pepcid and IV Solu-Medrol with some improvement that avert intubation procedure. She denied recent use of OTC NSAID. She reported family and self history of angioedema after consumption of shrimps. She has been on her current anti HTN medication including Valsartan for many years. Not currently on LAZARO-I. She admitted to eating shrimp on preceding Sunday and Sunday prior to her presentation her presentation. At the time of my evaluation she was not able to verbalize adequately but her lip and tongue swelling are improving as per her and spouse account at bedside. Her morbidities include Hypertension, Hyperlipidemia, Diabetes Mellitus Type 2, and Gastroesophageal Reflux Disease. Hospital Course Hospital Course: Patient was admitted for severe angioedema with lips and tongue swelling. It was initially thought be be due to LAZARO-I administration but further evaluation revealed prior history of similar lip swelling following consumption of shrimp which patient admitted consuming couple of days prior to her presenting symptoms of lip and tongue swelling with difficulty with breathing. She narrated similar food allergy in her mother with lip and tongue swelling after eating shrimp. Her C4 complement level was within normal limit. Her C1 complement level is pending at the time of her discharge. There is complete resolution of her lip and tongue swelling. She is tolerating regular food texture and swallowing without any problem. No chest pain or difficulty with breathing. She has been off her blood pressure medication throughout her hospital stay and her blood pressure has been fairly stable until at discharge evaluation time. She will be discharged home on all her preadmission medication. She will follow up in the office as instructed upon discharge. Physical Exam Vital Signs: Temp Pulse Resp BP Pulse Ox 99.2 F 71 18 145/76 H 99 11/02/17 11:52 11/02/17 14:00 11/02/17 11:52 11/02/17 11:52 11/02/17 11:52 Intake & Output 11/01/17 11/02/17 11/03/17 06:59 06:59 06:59 Intake Total 1814 790 100 Output Total 0 Balance 1814 790 100 General appearance: PRESENT: no acute distress, well-developed, well-nourished Head exam: PRESENT: atraumatic, normocephalic Eye exam: PRESENT: conjunctiva pink, EOMI, PERRLA. ABSENT: scleral icterus Mouth exam: PRESENT: moist, tongue midline Throat exam: ABSENT: post pharyngeal erythema, tonsillar erythema, tonsillar exudate, tonsillogmegaly, other Neck exam: PRESENT: full ROM. ABSENT: carotid bruit, JVD, lymphadenopathy, thyromegaly Respiratory exam: PRESENT: clear to auscultation [place] Cardiovascular exam: PRESENT: RRR. ABSENT: diastolic murmur, rubs, systolic murmur Pulses: PRESENT: normal dorsalis pedis pul, +2 pedal pulses bilateral Vascular exam: PRESENT: normal capillary refill. ABSENT: pallor GI/Abdominal exam: PRESENT: normal bowel sounds, soft. ABSENT: distended, guarding, mass, organolmegaly, rebound, tenderness Extremities exam: ABSENT: pedal edema Musculoskeletal exam: PRESENT: normal inspection Neurological exam: PRESENT: alert, awake, oriented to person, oriented to place , oriented to time, oriented to situation, CN II-XII grossly intact. ABSENT: motor sensory deficit Psychiatric exam: PRESENT: appropriate affect, normal mood. ABSENT: homicidal ideation, suicidal ideation Skin exam: PRESENT: dry, intact, warm. ABSENT: cyanosis, rash Results Laboratory Results: 10/31/17 08:49 Qualifiers - * PATEINT BEING DISCHARGED WITH ANY OF THE FOLLOWING DIAGNOSIS?: No Plan Discharge Plan: D/C home today. Follow up in the office as instructed upon discharge.
== END 2017-11-02 16:55 | disposition home or self-care (01) | DRG 916 ==
LOC: ER 03:25 → UNDOADMIN 05:31 → EH 05:31 → UNDOADMIN 07:54 → 3S 15:32
PROVIDERS: ADMIT Internal Medicine Geriatric Medicine; ATTEND Internal Medicine Geriatric Medicine
PROC: 30233K1 Transfusion of Nonautologous Frozen Plasma into Peripheral Vein, Percutaneous Approach (ICD-10-PCS; principal; 2017-10-30)
DX: T78.02XA Anaphylactic reaction due to shellfish (crustaceans), initial encounter (principal); E11.9 Type 2 diabetes mellitus without complications; T78.3XXA Angioneurotic edema, initial encounter; I10 Essential (primary) hypertension; E78.00 Pure hypercholesterolemia, unspecified; K21.9 Gastro-esophageal reflux disease without esophagitis; E78.5 Hyperlipidemia, unspecified; Z79.82 Long term (current) use of aspirin; Z79.899 Other long term (current) drug therapy; Z91.013 Allergy to seafood; Z79.84 Long term (current) use of oral hypoglycemic drugs
CPT/HCPCS: 36415; 36430; 80048; 82785; 82962; 85025; 85610; 85730; 86160; 86850; 86900; 86901; 96361; 96374; 96375; 99291; J0171; J1200; J1650; J1815; J2920; J2930; J3490; J7030; J7050; P9017; S0028

== ENCOUNTER 2017-12-22 12:31 | Emergency (ER) | payer MEDICARE ==
[2017-12-22 12:51] VITALS: BP 138/79
--- NOTE | 2017-12-22 13:16 | ER Document Report ---
ED Medical Screen (RME) - General Chief Complaint: Lip Swelling Stated Complaint: SWOLLEN LIPS Time Seen by Provider: 12/22/17 13:14 Notes: Patient is complaining of swelling of her lower lip noted this morning when she awakened. She had a problem like this but much worse a couple of months ago and was hospitalized here 4 days for swelling of her face, lips, and tongue. She was never found to have a specific allergen. She does currently take valsartan and a combination pill and has been on that for many years. It was not changed during her stay in the hospital 2 months ago. Today, she is not having any difficulty swallowing or breathing. She took 2 [id number] Benadryl's and does not know if it helped at all. Patient has mild swelling of the lower lip. Tongue is normal. Breathing normal. TRAVEL OUTSIDE OF THE [place] IN LAST 30 DAYS: No - Related Data Allergies/Adverse Reactions: No Known Allergies Allergy (Verified 12/22/17 12:35) Past Medical History - Social History Chew tobacco use (# tins/day): No Frequency of alcohol use: Occasional Drug Abuse: None - Past Medical History Cardiac Medical History: Reports: Hx Hypercholesterolemia, Hx Hypertension Endocrine Medical History: Reports: Hx Diabetes Mellitus Type 2 Renal/ Medical History: Denies: Hx Peritoneal Dialysis GI Medical History: Reports: Hx Gastroesophageal Reflux Disease Psychiatric Medical History: Denies: Hx Depression - Immunizations History of Influenza Vaccine for 05/2017 - 10/2017 Season: Yes Physical Exam - Vital signs Vitals: Temp Pulse Resp BP Pulse Ox 98.1 F 69 16 138/79 H 96 12/22/17 12:50 12/22/17 12:50 12/22/17 12:50 12/22/17 12:50 12/22/17 12:50 Course - Vital Signs Vital signs: Temp Pulse Resp BP Pulse Ox 98.1 F 69 16 138/79 H 96 12/22/17 12:50 12/22/17 12:50 12/22/17 12:50 12/22/17 12:50 12/22/17 12:50
[2017-12-22] MEDS ORDERED: METHYLPREDNISOLONE INJ 125 MG/2 ML SDV IV ONE (13:17)
[2017-12-22] MEDS ORDERED: FAMOTIDINE INJ/PF 20 MG/2 ML SDV IV ONE (13:17)
[2017-12-22] MEDS ORDERED: DIPHENHYDRAMINE HCL 50 MG/ML VIAL IV ONE (13:18)
--- NOTE | 2017-12-22 14:45 | ER Document Report ---
ED General - General Chief Complaint: Lip Swelling Stated Complaint: SWOLLEN LIPS Time Seen by Provider: 12/22/17 13:14 Mode of Arrival: Ambulatory Information source: Patient, Relative Notes: 72-year-old female with a history of hypertension, hyperlipidemia, type 2 diabetes presents with complaint of lip swelling that started this morning. Patient states she awoke with her bottom lip swollen. She denies new exposures. Patient has had prior similar symptoms and a recent hospitalization for severe angioedema. She states she has no difficulty swallowing, she denies any shortness of breath. She states the last time this occurred she had tongue involvement but none today. She denies any recent medication changes. She is currently on valsartan hydrochlorothiazide, metformin, metoprolol, atorvastatin. On her last hospital admission she states that she did not require intubation. TRAVEL OUTSIDE OF THE [place] IN LAST 30 DAYS: No - HPI Onset: This morning Onset/Duration: Sudden Quality of pain: No pain Severity: Mild Associated symptoms: None Exacerbated by: Denies Relieved by: Denies Similar symptoms previously: Yes Recently seen / treated by doctor: Yes - Related Data Allergies/Adverse Reactions: No Known Allergies Allergy (Verified 12/22/17 12:35) Past Medical History - General Information source: Patient, [facility] Records - Social History Smoking Status: Never Smoker Chew tobacco use (# tins/day): No Frequency of alcohol use: Occasional Drug Abuse: None Family History: Reviewed & Not Pertinent Patient has suicidal ideation: No Patient has homicidal ideation: No - Past Medical History Cardiac Medical History: Reports: Hx Hypercholesterolemia, Hx Hypertension Endocrine Medical History: Reports: Hx Diabetes Mellitus Type 2 Renal/ Medical History: Denies: Hx Peritoneal Dialysis GI Medical History: Reports: Hx Gastroesophageal Reflux Disease Psychiatric Medical History: Denies: Hx Depression Review of Systems - Review of Systems Notes: Patient denies fever, chills, nausea, vomiting, headache, ear pain, sore throat , difficulty swallowing, cough, chest pain, shortness of breath, abdominal pain , back pain, dysuria, hematuria, rash. She denies any new foods, exposures, medications or soaps Physical Exam - Vital signs Vitals: Temp Pulse Resp BP Pulse Ox 98.1 F 69 16 138/79 H 96 12/22/17 12:50 12/22/17 12:50 12/22/17 12:50 12/22/17 12:50 12/22/17 12:50 Interpretation: Normal, Hypertensive. No: Tachycardic, Hypoxic, Tachypneic, Febrile - Notes Notes: PHYSICAL EXAMINATION: GENERAL: Well-appearing, well-nourished and in no acute distress. HEAD: Atraumatic, normocephalic. EYES: Pupils equal round and reactive to light, extraocular movements intact, conjunctiva are normal. ENT: Nares patent, oropharynx clear without exudates. Moist mucous membranes. Swelling of the lower lip. No tongue swelling. Airway patent. NECK: Normal range of motion, supple without lymphadenopathy, no stridor LUNGS: Breath sounds clear to auscultation bilaterally and equal. No wheezes rales or rhonchi. HEART: Regular rate and rhythm without murmurs ABDOMEN: Soft, nontender, nondistended abdomen. No guarding, no rebound. No masses appreciated. Female : deferred Musculoskeletal: Normal range of motion, no pitting or edema. No cyanosis. NEUROLOGICAL: Cranial nerves grossly intact. Normal speech, normal gait. Normal sensory, motor exams PSYCH: Normal mood, normal affect. SKIN: Warm, Dry, normal turgor, no rashes or lesions noted. Course - Re-evaluation Re-evalutation: 12/22/17 14:55 72-year-old female presents with complaint of lower lip swelling that started just prior to arrival upon her awakening. Upon arrival vitals were reviewed and within normal limits. Patient does not appear toxic or dehydrated. She is in no acute distress. Patient did have a recent hospitalization on October 30, 2017 for severe angioedema. She was admitted at that time and monitored for 4 days. Initially thought that patient's angioedema was secondary to LAZARO inhibitor but patient reports she has not been on an LAZARO inhibitor for many years. C1 and C4 complements were normal at that time. There is a remote history of shrimp allergy. Patient denies any new exposures at this time. Prior to my exam patient did receive Benadryl, Solu-Medrol, Pepcid. She and her reports that swelling has improved significantly. I will touch base with the patient's primary care physician Dr. Rivera and monitor the patient in the emergency department for further progression. 12/22/17 16:22 Patient has remained stable without progression of lip swelling. Tongue is still not involved. I will touch base with the patient's primary care physician and make him aware that she is in the department with similar symptoms. 12/22/17 16:[address] Palacio who does not feel that observation in the hospital is warranted at this time. 12/22/17 23:16 - Vital Signs Vital signs: Temp Pulse Resp BP Pulse Ox 98.1 F 69 16 138/79 H 96 12/22/17 12:50 12/22/17 12:50 12/22/17 15:11 12/22/17 12:50 12/22/17 12:50 Discharge - Discharge Clinical Impression: Lip swelling Condition: Good Disposition: HOME, SELF-CARE Instructions: Acute Allergic Reaction ([facility]), Angioedema ([facility]) Additional Instructions: Follow up with your physician tomorrow for further care or return to the ED IMMEDIATELY if symptoms worsen or new concerns occur. If you cannot afford to follow up with your primary care physician a list of low cost clinics have been provided at the end of your discharge papers as well. Prescriptions: Diphenhydramine HCl [Benadryl] 25 mg PO Q8H 3 Days #9 capsule Famotidine [Pepcid 40 mg Tablet] 40 mg PO DAILY #5 tablet Prednisone [Deltasone 20 mg Tablet] 3 tab PO DAILY 5 Days #15 tablet Referrals: KRYSTINA RIVERA MD [Primary Care Provider] - Follow up as needed
== END 2017-12-22 16:56 | disposition home or self-care (01) ==
LOC: ER 12:31
DX: R22.0 Localized swelling, mass and lump, head (principal); I10 Essential (primary) hypertension; E78.00 Pure hypercholesterolemia, unspecified; E11.9 Type 2 diabetes mellitus without complications; Z79.899 Other long term (current) drug therapy; Z79.84 Long term (current) use of oral hypoglycemic drugs; Z91.013 Allergy to seafood
CPT/HCPCS: 99283; 96374; 96375; J1200; J2930; S0028

== ENCOUNTER 2018-03-07 14:39 | Observation (INO) | payer MEDICARE ==
[2018-03-07] MEDS ORDERED: FAMOTIDINE INJ/PF 20 MG/2 ML SDV IV ONE (15:30)
[2018-03-07] MEDS ORDERED: NORMAL SALINE 1000 ML 1,000 ML IV ONE (15:30)
[2018-03-07] MEDS ORDERED: METHYLPREDNISOLONE INJ 125 MG/2 ML SDV IV ONE (15:30)
[2018-03-07] MEDS ORDERED: DIPHENHYDRAMINE HCL 50 MG/ML VIAL IV ONE (15:30)
--- NOTE | 2018-03-07 15:45 | ER Document Report ---
ED General - General Chief Complaint: Edema Stated Complaint: FACIAL SWELLING Time Seen by Provider: 03/07/18 15:26 Mode of Arrival: Ambulatory Information source: Patient Notes: Pt is a 72 year old female on amlodipine for blood pressure who presents to the ER today for angioedema of her tongue that started when she woke up this morning. Pt used to be on lisinopril, and has had this happen two times before. Pt was sent her for direct admission by her pcp Dr. Olivo, but when she got to the front desk assistant of the ER, told them her tongue was swollen and they had her check in to be looked at by a provider because Dr. Olivo is in the office today and may not be here to see her for hours. Pt states her tongue is actually a little better than this morning. She took 4 oral benadryl at home this morning. She denies swelling anywhere else, difficulty breathing or swallowing at this time. TRAVEL OUTSIDE OF THE [place] IN LAST 30 DAYS: No - Related Data Allergies/Adverse Reactions: No Known Allergies Allergy (Verified 03/07/18 18:17) Past Medical History - General Information source: Patient - Social History Smoking Status: Unknown if Ever Smoked Family History: Reviewed & Not Pertinent - Past Medical History Cardiac Medical History: Reports: Hx Hypercholesterolemia, Hx Hypertension Endocrine Medical History: Reports: Hx Diabetes Mellitus Type 2 Renal/ Medical History: Denies: Hx Peritoneal Dialysis GI Medical History: Reports: Hx Gastroesophageal Reflux Disease Psychiatric Medical History: Denies: Hx Depression Review of Systems - Review of Systems Constitutional: No symptoms reported EENT: See HPI Cardiovascular: No symptoms reported Respiratory: No symptoms reported Gastrointestinal: No symptoms reported Genitourinary: No symptoms reported Female Genitourinary: No symptoms reported Musculoskeletal: No symptoms reported Skin: No symptoms reported Hematologic/Lymphatic: No symptoms reported Neurological/Psychological: No symptoms reported Physical Exam - Vital signs Vitals: Temp Pulse Resp BP Pulse Ox 98.1 F 97 16 141/81 H 98 03/07/18 14:53 03/07/18 14:53 03/07/18 14:53 03/07/18 14:53 03/07/18 14:53 - Notes Notes: PHYSICAL EXAMINATION: GENERAL: anxious, in no acute distress. HEAD: Atraumatic, normocephalic. EYES: Pupils equal round and reactive to light, extraocular movements intact, sclera anicteric, conjunctiva are normal. ENT: mild edema to tonue only, no lip involvement, airway patent, ear canals without erythema or foreign body, TMs pearly merrill with good bony landmarks, nares patent, oropharynx clear without exudates. Moist mucous membranes. NECK: Normal range of motion, supple without lymphadenopathy LUNGS: CTAB and equal. No wheezes rales or rhonchi. HEART: Regular rate and rhythm without murmurs ABDOMEN: Soft, no tenderness. No guarding, no rebound EXTREMITIES: Normal range of motion, no pitting edema. No cyanosis. NEUROLOGICAL: Cranial nerves grossly intact. Normal sensory/motor exams. Good and equal strength bilaterally, Kernig and Brudzinski's signs negative, Romberg' s test normal, normal heel to wells testing PSYCH: Normal mood, normal affect. SKIN: Warm, Dry, normal turgor, no rashes or lesions noted Course - Re-evaluation Re-evalutation: 03/08/18 10:08 pt delays her IV from getting started by more than 20 minutes as everytime a nurse gets an IV on her, she is writhing in so much pain from the IV she says, that she will not keep her arms still. I witnessed this twice, she jerks her arm away from the nurses and the IV is blown. Finally she allows an IV to be placed but it delayed care by about 30 minutes due to her own behavior. These were common areas in the arm/hand to get IVs. 03/08/18 10:10 - Vital Signs Vital signs: Temp Pulse Resp BP Pulse Ox 98.4 F 86 16 123/66 100 03/08/18 06:50 03/08/18 06:50 03/08/18 06:50 03/08/18 06:50 03/08/18 06:50 - Laboratory Result Diagrams: 03/07/18 16:21 03/07/18 16:21 Discharge - Discharge Clinical Impression: Angioedema Qualifiers: Encounter type: subsequent encounter Qualified Code(s): T78.3XXD - Angioneurotic edema, subsequent encounter Condition: Stable Disposition: ADMITTED OBSERVATION Admitting Provider: [facility] Unit Admitted: Medical Floor
[2018-03-07 16:37] LABS: ABSOLUTE LYMPHOCYTES (AUTO) 2.1 10^3/uL (0.5-4.7); ABSOLUTE MONOCYTES (AUTO) 0.6 10^3/uL (0.1-1.4); ABSOLUTE NEUT (AUTO) 5.5 10^3/uL (1.7-8.2); BASOPHILS % (AUTO) 0.6 % (0-2); EOSINOPHILS % (AUTO) 0.5 % (0-6); HEMATOCRIT 40.2 % (36.0-47.0); HEMOGLOBIN 13.2 g/dL (12.0-15.5); LYMPHOCYTES % (AUTO) 25.6 % (13-45); MEAN CORPUSCULAR HGB CONC 32.9 g/dL (32.0-36.0); MEAN CORPUSCULAR VOLUME 85 fl (80-97); MONOCYTES % (AUTO) 6.8 % (3-13); PLATELET COUNT 169 10^3/uL (150-450); RED BLOOD COUNT 4.73 10^6/uL (3.72-5.28); RED CELL DISTRIBUTION WIDTH 15.6 % (11.5-14.0); SEGMENTED NEUTROPHILS % (AUTO) 66.5 % (42-78); TOTAL CELLS COUNTED % (AUTO) 100 %; WHITE BLOOD COUNT 8.2 10^3/uL (4.0-10.5)
[2018-03-07 16:49] LABS: ALANINE AMINOTRANSFERASE 25 U/L (9-52); ALBUMIN 3.7 g/dL (3.5-5.0); ALKALINE PHOSPHATASE 75 U/L (38-126); ANION GAP 10 (5-19); ASPARTATE AMINO TRANSFERASE 19 U/L (14-36); BILIRUBIN,DIRECT 0.3 mg/dL (0.0-0.4); BILIRUBIN,TOTAL 0.5 mg/dL (0.2-1.3); BLOOD UREA NITROGEN 14 mg/dL (7-20); CALCIUM 9.2 mg/dL (8.4-10.2); CARBON DIOXIDE 25 mmol/L (22-30); CHLORIDE 108 mmol/L (98-107); GLUCOSE 94 mg/dL (75-110); POTASSIUM 3.8 mmol/L (3.6-5.0); SODIUM 143.3 mmol/L (137-145); TOTAL PROTEIN 6.5 g/dL (6.3-8.2)
[2018-03-07] MEDS ORDERED: ALPRAZOLAM 0.25 MG TABLET PO PRN (18:45)
[2018-03-07] MEDS ORDERED: GLUCAGON,HUMAN RECOMB 1 MG INJ IM PRN (18:49)
[2018-03-07] MEDS ORDERED: INSULIN LISPRO 100 UNIT/ML 3 ML VIAL SUBCUT PRN (18:49)
[2018-03-07] MEDS ORDERED: DEXTROSE 50%-WATER 25 GM/50 ML DISP.SYRIN IV PRN ×2 (18:49)
[2018-03-07] MEDS ORDERED: DEXTROSE 40% GEL 15 GM TUBE PO PRN ×2 (18:49)
[2018-03-07] MEDS ORDERED: HYDRALAZINE HCL INJ/PF 20 MG/1 ML SDV IV PRN (19:19)
[2018-03-07] MEDS ORDERED: DIPHENHYDRAMINE HCL 50 MG/ML VIAL IV PRN (19:19)
[2018-03-07] MEDS: FAMOTIDINE INJ/PF 20 MG/2 ML SDV IV SCH (21:56)
[2018-03-07] MEDS: METHYLPREDNISOLONE INJ 125 MG/2 ML SDV IV SCH (21:56)
[2018-03-07] MEDS: METOPROLOL TARTRATE 50 MG TABLET PO SCH (21:56)
[2018-03-07] MEDS ORDERED: CITALOPRAM HYDROBROMIDE 20 MG TABLET PO SCH (22:00)
[2018-03-08] MEDS: METHYLPREDNISOLONE INJ 125 MG/2 ML SDV IV SCH ×2 (05:44→13:38)
[2018-03-08] MEDS: FAMOTIDINE INJ/PF 20 MG/2 ML SDV IV SCH (09:18)
[2018-03-08] MEDS: METOPROLOL TARTRATE 50 MG TABLET PO SCH (09:18)
[2018-03-08 09:46] LABS: FREE T3 5.17 pg/mL (2.77-5.27); FREE T4 (FREE THYROXINE) 2.55 ng/dL (0.78-2.19)
[2018-03-08] MEDS ORDERED: ASPIRIN 81 MG TABLET, ENT COATED PO SCH (10:00)
[2018-03-08] MEDS ORDERED: ENOXAPARIN SODIUM INJ 40 MG/0.4 ML DISP.SYRIN SUBCUT SCH (10:00)
--- NOTE | 2018-03-08 15:07 | PDOC H&P ---
History of Present Illness Admission Date/PCP: 03/07/18 15:55 KRYSTINAJANNA RIVERA Patient complains of: Tongue and lip swelling History of Present Illness: SHARDA BENSON is a 72 year old female known to my practice who presented to the office as walk in earlier today with complain of new onset tongue and lip swelling. She has been taking oral Benadryl with little benefit. She reported increase difficulty with swallowing and excessive salivation. 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 She denied consumption of any unusual food. She has been taken off LAZARO-I in the past and currently on Amlodipine as well as Metoprolol for management of her hypertension. She denied any chest pain or difficulty with breathing. In view of her evaluation revealing significant swelling of her tongue, excessive salivation and inability to adequately assess her oropharynx she was advised hospitalization. In view of no available bed at the hospital, she was referred to the ED for further management. Her morbidities include hypertension, hyperlipidemia, GERD, Mixed Anxiety with depressive disorder, and Diabetes Mellitus type 2. Past Medical History Cardiac Medical History: Reports: Hyperlipidema, Hypertension Endocrine Medical History: Reports: Diabetes Mellitus Type 2, Other - Enlarged left thyroid lobe with serial ultrasound and biopsies in the past Malignancy Medical History: Reports: Breast Cancer - diagnosed 2003 s/p Lumpectomy and radiation therapy. No chemotherapy. GI Medical History: Reports: Gastroesophageal Reflux Disease Musculoskeltal Medical History: Reports: Arthritis, Other - Low back pain Psychiatric Medical History: Reports: Depression, General Anxiety Disorder Social History Smoking Status: Never Smoker Frequency of Alcohol Use: Rare - Advance Directive Resuscitation Status: Full Code Family History Family History: Reviewed & Not Pertinent Parental Family History Reviewed: Yes Children Family History Reviewed: Yes Sibling(s) Family History Reviewed.: Yes Medication/Allergy Home Medications: Alprazolam [Xanax 0.25 mg Tablet] 0.25 mg PO DAILYP PRN 10/30/17 Amlodipine Besylate [Norvasc 5 mg Tablet] 5 mg PO DAILY 10/30/17 Aspirin [Ecotrin 81 mg EC Tablet] 81 mg PO DAILY 10/30/17 Atorvastatin Calcium [Lipitor 20 mg Tablet] 20 mg PO QHS 10/30/17 Calcium Carbonate/Vitamin D3 [Calcium 600 + Vit D Tablet] 1 tab PO QAM 10/30/17 Citalopram Hydrobromide [Celexa 10 mg Tablet] 10 mg PO QHS 10/30/17 Fluticasone Propionate [Flonase Nasal [place] 50 Mcg/[place] 16 gm] 1 spray NASL DAILYP PRN 10/30/17 Metformin HCl [Glucophage 500 mg Tablet] 500 mg PO BID 10/30/17 Metoprolol Tartrate [Lopressor 50 mg Tablet] 50 mg PO Q12 10/30/17 Pyridoxine HCl [Vitamin B-6] 100 mg PO DAILY 10/30/17 Tramadol HCl [Ultram 50 mg Tablet] 50 mg PO DAILYP PRN 10/30/17 Diphenhydramine HCl [Benadryl] 25 mg PO Q8HP PRN 03/07/18 Pantoprazole Sodium [Protonix] 20 mg PO DAILYP PRN 03/07/18 Vitamin B Complex [Super B [id number]] 1 each PO DAILY 03/07/18 Allergies/Adverse Reactions: No Known Allergies Allergy (Verified 03/07/18 18:17) Review of Systems Constitutional: ABSENT: chills, fever(s), headache(s), weight gain, weight loss Eyes: ABSENT: visual disturbances Ears: ABSENT: hearing changes Nose, Mouth, and Throat: ABSENT: as per HPI, headache(s), mouth pain, sore throat, vertigo, other Cardiovascular: ABSENT: chest pain, dyspnea on exertion, edema, orthropnea, palpitations Respiratory: ABSENT: cough, hemoptysis Gastrointestinal: ABSENT: abdominal pain, constipation, diarrhea, hematemesis, hematochezia, nausea, vomiting Genitourinary: ABSENT: dysuria, hematuria Musculoskeletal: ABSENT: joint swelling Integumentary: ABSENT: rash, wounds Neurological: ABSENT: abnormal gait, abnormal speech, confusion, dizziness, focal weakness, syncope Psychiatric: ABSENT: anxiety, depression, homidical ideation, suicidal ideation Endocrine: ABSENT: cold intolerance, heat intolerance, polydipsia, polyuria Hematologic/Lymphatic: ABSENT: easy bleeding, easy bruising, lymphadenopathy Allergic/Immunologic: ABSENT: seasonal rhinorrhea Physical Exam Vital Signs: Temp Pulse Resp BP Pulse Ox 98.1 F 97 19 120/73 95 03/07/18 14:53 03/07/18 14:53 03/07/18 17:01 03/07/18 17:01 03/07/18 17:01 General appearance: PRESENT: mild distress - related to her tongue swelling and difficulty with swallowing, well-developed, well-nourished Head exam: PRESENT: atraumatic, normocephalic Eye exam: PRESENT: conjunctiva pink, EOMI, PERRLA. ABSENT: scleral icterus Ear exam: PRESENT: normal external ear exam Mouth exam: PRESENT: moist, other - swollen tongue with limited evaluation of her oropharynx and excessive salivation. ABSENT: tongue midline Neck exam: PRESENT: full ROM. ABSENT: carotid bruit, JVD, lymphadenopathy, thyromegaly Respiratory exam: PRESENT: clear to auscultation [place] Cardiovascular exam: PRESENT: RRR. ABSENT: diastolic murmur, rubs, systolic murmur Pulses: PRESENT: normal dorsalis pedis pul, +2 pedal pulses bilateral Vascular exam: PRESENT: normal capillary refill. ABSENT: pallor GI/Abdominal exam: PRESENT: normal bowel sounds, soft. ABSENT: distended, guarding, mass, organolmegaly, rebound, tenderness Rectal exam: PRESENT: deferred Extremities exam: ABSENT: pedal edema Musculoskeletal exam: PRESENT: normal inspection Neurological exam: PRESENT: alert, awake, oriented to person, oriented to place , oriented to time, oriented to situation, CN II-XII grossly intact. ABSENT: motor sensory deficit Psychiatric exam: PRESENT: anxious - due to her tongue swelling Skin exam: PRESENT: dry, intact, warm. ABSENT: cyanosis, rash Results Laboratory Results: 03/07/18 16:21 03/07/18 16:21 03/07/18 03/07/18 16:21 16:21 WBC 8.2 RBC 4.73 Hgb 13.2 Hct 40.2 MCV 85 MCH 28.0 MCHC 32.9 RDW 15.6 H Plt Count 169 Seg Neutrophils % 66.5 Lymphocytes % 25.6 Monocytes % 6.8 Eosinophils % 0.5 Basophils % 0.6 Absolute Neutrophils 5.5 Absolute Lymphocytes 2.1 Absolute Monocytes 0.6 Absolute Eosinophils 0.0 Absolute Basophils 0.0 Sodium 143.3 Potassium 3.8 Chloride 108 H Carbon Dioxide 25 Anion Gap 10 BUN 14 Creatinine 0.60 Est GFR ( Amer) > 60 Est GFR (Non-Af Amer) > 60 Glucose 94 Calcium 9.2 Total Bilirubin 0.5 AST 19 ALT 25 Alkaline Phosphatase 75 Total Protein 6.5 Albumin 3.7 Assessment & Plan - Diagnosis (1) Angioedema Qualifiers: Encounter type: initial encounter Qualified Code(s): T78.3XXA - Angioneurotic edema, initial encounter Plan: See admitting attending physician orders. (2) Diabetes mellitus type 2 in nonobese Is this a current diagnosis for this admission?: Yes Plan: See admitting attending physician orders. (3) HTN (hypertension) Qualifiers: Hypertension type: essential hypertension Qualified Code(s): I10 - Essential (primary) hypertension Is this a current diagnosis for this admission?: Yes Plan: See admitting attending physician orders. (4) HLD (hyperlipidemia) Qualifiers: Hyperlipidemia type: pure hypercholesterolemia Qualified Code(s): E78.00 - Pure hypercholesterolemia, unspecified; E78.0 - Pure hypercholesterolemia Is this a current diagnosis for this admission?: Yes Plan: See admitting attending physician orders. (5) GERD (gastroesophageal reflux disease) Qualifiers: Esophagitis presence: without esophagitis Qualified Code(s): K21.9 - Gastro -esophageal reflux disease without esophagitis Is this a current diagnosis for this admission?: Yes Plan: See admitting attending physician orders. - Time Time Spent: 50 to 70 Minutes Medications reviewed and adjusted accordingly: Yes Anticipated discharge: Home Within: within 48 hours - Inpatient Certification Based on my medical assessment, after consideration of the patient's comorbidities, presenting symptoms, or acuity I expect that the services needed warrant INPATIENT care.: No I certify that my determination is in accordance with my understanding of Medicare's requirements for reasonable and necessary INPATIENT services [42 CFR 412.3e].: No Post Hospital Care: D/C [employer] Documentation - Plan Summary Plan Summary: See admitting attending physician orders.
--- NOTE | 2018-03-08 15:27 | PDOC DISCHARGE SUMMARY ---
General - Admit/Disc Date/PCP Admission Date/Primary Care Provider: 03/07/18 15:55 KRYSTINA RIVERA Discharge Date: 03/08/18 - Discharge Diagnosis (2) Diabetes mellitus type 2 in nonobese Is this a current diagnosis for this admission?: Yes (3) HTN (hypertension) Is this a current diagnosis for this admission?: Yes (4) HLD (hyperlipidemia) Is this a current diagnosis for this admission?: Yes (5) GERD (gastroesophageal reflux disease) Is this a current diagnosis for this admission?: Yes (6) Hyperthyroidism determined by thyroid function test Is this a current diagnosis for this admission?: Yes Summary: See attending physician orders. Patient will be schedule for outpatient thyroid ultrasound and possible FNA for further evaluation. - Additional Information Resuscitation Status: Full Code Prescriptions: Famotidine [Pepcid 20 mg Tablet] 20 mg PO BID #30 tablet Methylprednisolone [Medrol Dosepack (4 mg/Tab) 21 Tab/Dosepak] 4 mg PO ASDIR PRN #21 tab.ds.pk PRN Reason: Home Medications: Alprazolam [Xanax 0.25 mg Tablet] 0.25 mg PO DAILYP PRN 10/30/17 Amlodipine Besylate [Norvasc 5 mg Tablet] 5 mg PO DAILY 10/30/17 Aspirin [Ecotrin 81 mg EC Tablet] 81 mg PO DAILY 10/30/17 Atorvastatin Calcium [Lipitor 20 mg Tablet] 20 mg PO QHS 10/30/17 Calcium Carbonate/Vitamin D3 [Calcium 600 + Vit D Tablet] 1 tab PO QAM 10/30/17 Citalopram Hydrobromide [Celexa 10 mg Tablet] 10 mg PO QHS 10/30/17 Fluticasone Propionate [Flonase Nasal [place] 50 Mcg/[place] 16 gm] 1 spray NASL DAILYP PRN 10/30/17 Metformin HCl [Glucophage 500 mg Tablet] 500 mg PO BID 10/30/17 Metoprolol Tartrate [Lopressor 50 mg Tablet] 50 mg PO Q12 10/30/17 Pyridoxine HCl [Vitamin B-6] 100 mg PO DAILY 10/30/17 Tramadol HCl [Ultram 50 mg Tablet] 50 mg PO DAILYP PRN 10/30/17 Diphenhydramine HCl [Benadryl] 25 mg PO Q8HP PRN 03/07/18 Pantoprazole Sodium [Protonix] 20 mg PO DAILYP PRN 03/07/18 Vitamin B Complex [Super B [id number]] 1 each PO DAILY 03/07/18 Famotidine [Pepcid 20 mg Tablet] 20 mg PO BID #30 tablet 03/08/18 Methylprednisolone [Medrol Dosepack (4 mg/Tab) 21 Tab/Dosepak] 4 mg PO ASDIR PRN #21 tab.ds.pk 03/08/18 History of Present Illness History of Present Illness: SHARDA BENSON is a 72 year old female known to my practice who presented to the office as walk in earlier today with complain of new onset tongue and lip swelling. She has been taking oral Benadryl with little benefit. She reported increase difficulty with swallowing and excessive salivation. 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 She denied consumption of any unusual food. She has been taken off LAZARO-I in the past and currently on Amlodipine as well as Metoprolol for management of her hypertension. She denied any chest pain or difficulty with breathing. In view of her evaluation revealing significant swelling of her tongue, excessive salivation and inability to adequately assess her oropharynx she was advised hospitalization. In view of no available bed at the hospital, she was referred to the ED for further management. Her morbidities include hypertension, hyperlipidemia, GERD, Mixed Anxiety with depressive disorder, and Diabetes Mellitus type 2. Hospital Course Hospital Course: Patient responded to IV therapy including Solu Medrol, Famotidine and Benadryl administration. Her physical evaluation did revealed satisfactory normal size tongue with adequate evaluation of her oropharynx. She will be discharge home of tapering dose Methylprednisolone, pepcid and Benadryl therapy. She will follow up in the office as instructed upon discharge. Physical Exam Vital Signs: Temp Pulse Resp BP Pulse Ox 98.1 F 74 20 132/71 H 100 03/08/18 12:03/08/18 12:03/08/18 12:03/08/18 12:03/08/18 12:06 General appearance: PRESENT: no acute distress, well-developed, well-nourished Head exam: PRESENT: atraumatic, normocephalic Eye exam: PRESENT: conjunctiva pink, EOMI, PERRLA. ABSENT: scleral icterus Mouth exam: PRESENT: moist, tongue midline Respiratory exam: PRESENT: clear to auscultation [place] Cardiovascular exam: PRESENT: RRR. ABSENT: diastolic murmur, rubs, systolic murmur Vascular exam: PRESENT: normal capillary refill. ABSENT: pallor GI/Abdominal exam: PRESENT: normal bowel sounds, soft. ABSENT: distended, guarding, mass, organolmegaly, rebound, tenderness Extremities exam: ABSENT: pedal edema Musculoskeletal exam: PRESENT: normal inspection Neurological exam: PRESENT: alert, awake, oriented to person, oriented to place , oriented to time, oriented to situation, CN II-XII grossly intact. ABSENT: motor sensory deficit Psychiatric exam: PRESENT: appropriate affect, normal mood. ABSENT: homicidal ideation, suicidal ideation Skin exam: PRESENT: dry, intact, warm. ABSENT: cyanosis, rash Results Laboratory Results: 03/07/18 16:21 03/07/18 16:21 03/07/18 03/07/18 03/07/18 16:21 16:21 16:21 WBC 8.2 RBC 4.73 Hgb 13.2 Hct 40.2 MCV 85 MCH 28.0 MCHC 32.9 RDW 15.6 H Plt Count 169 Seg Neutrophils % 66.5 Lymphocytes % 25.6 Monocytes % 6.8 Eosinophils % 0.5 Basophils % 0.6 Absolute Neutrophils 5.5 Absolute Lymphocytes 2.1 Absolute Monocytes 0.6 Absolute Eosinophils 0.0 Absolute Basophils 0.0 Sodium 143.3 Potassium 3.8 Chloride 108 H Carbon Dioxide 25 Anion Gap 10 BUN 14 Creatinine 0.60 Est GFR ( Amer) > 60 Est GFR (Non-Af Amer) > 60 Glucose 94 Calcium 9.2 Total Bilirubin 0.5 AST 19 ALT 25 Alkaline Phosphatase 75 C-Reactive Protein 13.4 H Total Protein 6.5 Albumin 3.7 TSH Free T4 Free T3 pg/mL 03/07/18 03/07/18 16:21 16:21 WBC RBC Hgb Hct MCV MCH MCHC RDW Plt Count Seg Neutrophils % Lymphocytes % Monocytes % Eosinophils % Basophils % Absolute Neutrophils Absolute Lymphocytes Absolute Monocytes Absolute Eosinophils Absolute Basophils Sodium Potassium Chloride Carbon Dioxide Anion Gap BUN Creatinine Est GFR ( Amer) Est GFR (Non-Af Amer) Glucose Calcium Total Bilirubin AST ALT Alkaline Phosphatase C-Reactive Protein Total Protein Albumin TSH < 0.01 L Free T4 2.55 H Free T3 pg/mL 5.17 Qualifiers - * PATIENT BEING DISCHARGED WITH ANY OF THE FOLLOWING DIAGNOSIS: No Plan Discharge Plan: D/C home today with follow up appoint as earlier scheduled.
[2018-03-08 16:10] VITALS: BP 141/77
== END 2018-03-08 16:20 | disposition home or self-care (01) ==
LOC: ER 14:39 → EH 15:55 → 4S 18:52
PROVIDERS: ADMIT Internal Medicine Geriatric Medicine; ATTEND Internal Medicine Geriatric Medicine
DX: T78.3XXA Angioneurotic edema, initial encounter (principal); E11.9 Type 2 diabetes mellitus without complications; I10 Essential (primary) hypertension; E78.00 Pure hypercholesterolemia, unspecified; K21.9 Gastro-esophageal reflux disease without esophagitis; E05.90 Thyrotoxicosis, unspecified without thyrotoxic crisis or storm; F41.8 Other specified anxiety disorders; Z79.899 Other long term (current) drug therapy; Z79.84 Long term (current) use of oral hypoglycemic drugs; Z91.013 Allergy to seafood; Z79.82 Long term (current) use of aspirin; Z85.3 Personal history of malignant neoplasm of breast; Z92.3 Personal history of irradiation
CPT/HCPCS: 99284; 96361; 96374; 96375; 36415; 84439; 82962 ×2; 84443; 85025; 86140; 80053; 84481; J1200; A9270 ×5; J2930 ×2; J1650; J7030; S0028 ×2; G0378; J1815

== ENCOUNTER → 2018-03-21 | Outpatient (CLI) | payer MEDICARE ==
--- NOTE | 2018-03-21 14:27 | WOMENS IMAGING REPORT ---
EXAM DESCRIPTION: U/S THYROID/ST TIS HEAD NECK COMPLETED DATE/TIME: 03/21/2018 8:25 am REASON FOR STUDY: U/S THYROID/E03.9 E03.9 HYPOTHYROIDISM, UNSPECIFIED COMPARISON: None. TECHNIQUE: Dynamic and static sheehan-scale images acquired of the thyroid gland. Selected additional c olor/power Doppler images recorded. All images stored to PACS. LIMITATIONS: None. FINDINGS: RIGHT LOBE: Enlarged, measuring 5.5 cm. Heterogeneous echotexture. Multiple complex hete rogenous nodules. Cystic nodules with solid components, overall measurements of 1.3 cm and 2.2 cm. LEFT LOBE: Enlarged, measuring 5.6 cm. Markedly heterogenous echotexture. No focal masses. ISTHMUS: Normal size. Heterogeneous echotexture. No cystic or solid masses. OTHER: No other significant finding. IMPRESSION: ENLARGED THYROID WITH MARKEDLY HETEROGENOUS ECHOGENICITY. THERE ARE 2 COMPLEX SOLID AND CYSTIC NODULES IN THE RIGHT LOBE, THE LARGEST MEASURING 2.2 CM. MAY CONSIDER ULTRASOUND-GUIDED BIOP SY OF THE MURAL NODULE IN THE LARGEST CYSTIC MASS. COMMENT: RECOMMENDATIONS FOR THYROID NODULES 1 CM OR LARGER Solitary nodules: Microcalcifications - FNA if 1 cm or greater. Solid or coarse calcification - FNA if 1.5 cm or greater. Mixed Solid/Cystic or Cystic with Mural Nodule - FNA if 2 cm or greater. None of the above but substantial growth since previous - FNA. Cystic with none of the above features and no significant growth - no FNA. Multiple nodules: Use above criteria for selection of nodules to FNA/biopsy. Biopsy probably not necessary in enlarged gland with multiple nodules of similar appearance. Abnormal lymph nodes - FNA/biopsy. Reference: Management of Thyroid Nodules Detected at [place]: Society of Radiologists in Ultrasound Consensus Stateme nt. Radiology 2005; 237:794-800 TECHNICAL DOCUMENTATION: JOB ID: [id number] [employer]- All Rights Reserved Reading location - IP/workstation name: [facility]
== END ==
LOC: WI 07:56
PROVIDERS: ATTEND Internal Medicine Geriatric Medicine
DX: E03.9 Hypothyroidism, unspecified (principal)
CPT/HCPCS: 76536

== ENCOUNTER 2018-04-14 20:28 | Emergency (ER) | payer MEDICARE ==
[2018-04-14] MEDS ORDERED: ACETAMINOPHEN 325 MG TABLET PO ONE (21:54)
[2018-04-14] MEDS ORDERED: LIDOCAINE 5% (700 MG) TRANSDERMAL ADH..PATCH TP ONE (21:54)
[2018-04-14] MEDS ORDERED: KETOROLAC TROMETHAMINE 60 MG/2 ML SDV IM ONE (21:54)
--- NOTE | 2018-04-14 21:57 | ER Document Report ---
ED General - General Chief Complaint: Neck Problem Stated Complaint: LEFT SIDE NECK/HEAD PAIN Time Seen by Provider: 04/14/18 20:46 Notes: Patient is a 72-year-old female with a past medical history of essential hypertension who presents with 3 days of left-sided neck discomfort. The patient states that she strained the area several days ago while doing work around the house and since that time has been having progressive worsening of discomfort to the left sternocleidomastoid region and left trapezius. She describes this as a throbbing, spasming pain. Movement of the neck or palpation of the area worsens the pain. She has taken tramadol with some improvement of the pain. She denies any history of similar symptoms in the past. She denies any focal weakness, numbness, chest pain, shortness of breath , pain in the jaw, facial numbness, facial weakness, fever or constitutional symptoms. She has not seen her general doctor regarding today's concerns. TRAVEL OUTSIDE OF THE [place] IN LAST 30 DAYS: No - Related Data Allergies/Adverse Reactions: No Known Allergies Allergy (Verified 03/07/18 18:17) Past Medical History - General Information source: Patient - Social History Smoking Status: Never Smoker Frequency of alcohol use: Rare Drug Abuse: None Lives with: Spouse/Significant other Family History: Reviewed & Not Pertinent Patient has suicidal ideation: No Patient has homicidal ideation: No - Past Medical History Cardiac Medical History: Reports: Hx Hypercholesterolemia, Hx Hypertension Endocrine Medical History: Reports: Hx Diabetes Mellitus Type 2, Hx Hypothyroidism Renal/ Medical History: Denies: Hx Peritoneal Dialysis Malignancy Medical History: Reports: Hx Breast Cancer - diagnosed 2003 s/p Lumpectomy and radiation therapy. No chemotherapy. GI Medical History: Reports: Hx Gastroesophageal Reflux Disease Musculoskeletal Medical History: Reports Hx Arthritis Psychiatric Medical History: Reports: Hx Depression Review of Systems - Review of Systems Notes: Constitutional: Negative for fever. HENT: Negative for sore throat. Eyes: Negative for visual changes. Cardiovascular: Negative for chest pain. Respiratory: Negative for shortness of breath. Gastrointestinal: Negative for abdominal pain, vomiting or diarrhea. Genitourinary: Negative for dysuria. Musculoskeletal: Positive for left neck and trapezius pain Skin: Negative for rash. Neurological: Negative for headaches, weakness or numbness. 10 point ROS negative except as marked above and in HPI. Physical Exam - Vital signs Vitals: Temp Pulse Resp BP Pulse Ox 97.4 F 68 18 155/73 H 96 04/14/18 20:36 04/14/18 20:36 04/14/18 20:36 04/14/18 20:36 04/14/18 20:36 Interpretation: Hypertensive Notes: PHYSICAL EXAMINATION: GENERAL: Well-appearing, well-nourished and in no acute distress. HEAD: Atraumatic, normocephalic. EYES: Pupils equal round and reactive to light, extraocular movements intact, sclera anicteric, conjunctiva are normal. ENT: nares patent, oropharynx clear without exudates. Moist mucous membranes. NECK: Normal range of motion, supple without lymphadenopathy, pain on palpation of the left sternocleidomastoid and left trapezius muscle groups. LUNGS: Breath sounds clear to auscultation bilaterally and equal. No wheezes rales or rhonchi. HEART: Regular rate and rhythm without murmurs ABDOMEN: Soft, nontender, normoactive bowel sounds. No guarding, no rebound. No masses appreciated. EXTREMITIES: Normal range of motion, no pitting or edema. No cyanosis. NEUROLOGICAL: No focal neurological deficits. Moves all extremities spontaneously and on command. PSYCH: Normal mood, normal affect. SKIN: Warm, Dry, normal turgor, no rashes or lesions noted. Course - Re-evaluation Re-evalutation: 04/14/18 21:54 Patient presents with signs and symptoms most consistent with an acute left- sided sternocleidomastoid and trapezius muscle strain. The pain is reproducible with the patient rotating her neck toward the left side and along palpation of the affected areas. She has no symptoms or signs to suggest a carotid artery or vertebral artery dissection. She denies any chest pain or shortness of breath. She is noting that the symptoms have been ongoing for the past 3 days and her notes that she did strain her neck while overexerting herself 3 days ago when the symptoms started. There does not appear to be any clinical history to suggest ACS or an alternative life- threatening pathology as the etiology of today's presentation. The patient has been started on anti-inflammatories, topical lidocaine, local heat and has been encouraged to follow-up closely with her primary care doctor. A complete neurologic assessment is unremarkable. I do not believe any imaging or laboratory assessments are indicated at this time point. I do not believe that this is an atypical presentation of ACS. At this time will discharge with return precautions and follow-up recommendations. Verbal discharge instructions given a the bedside and opportunity for questions given. Medication warnings reviewed. Patient is in agreement with this plan and has verbalized understanding of return precautions and the need for primary care follow-up in the next 24-72 hours. - Vital Signs Vital signs: Temp Pulse Resp BP Pulse Ox 97.3 F 60 16 149/72 H 94 04/14/18 22:05 04/14/18 22:05 04/14/18 22:05 04/14/18 22:05 04/14/18 22:05 - EKG Interpretation by Me Additional EKG results interpreted by me: 04/15/18 03:30 Sinus rhythm. Rate 59. No ST elevations or depressions. Signs consistent with LVH. T-wave flattening in the lateral leads. Unchanged from prior telemetry strips. Discharge - Discharge Clinical Impression: Neck pain on left side, Musculoskeletal strain Condition: Good Disposition: HOME, SELF-CARE Additional Instructions: Your symptoms appear to be most consistent from a muscle strain to your left neck muscles. Please take the naproxen that has been prescribed twice daily for pain. Please take famotidine 20 mg twice daily while taking naproxen to protect your stomach. This medication can be purchased directly over the counter. You should also purchase [id number] topical lidocaine patches and apply them to the area per box instructions. Continue to keep the area regularly. Do perform gentle stretching of the neck to prevent further spasming. Please follow-up with your primary care physician if you do not have improving your symptoms in the next 1-2 weeks. Please return immediately if you develop weakness, numbness, spreading redness from the area, or any other symptoms that are concerning to you. Prescriptions: Naproxen 500 mg PO BID #60 tablet Referrals: KRYSTINA RIVERA MD [Primary Care Provider] - Follow up as needed
[2018-04-14 22:06] VITALS: BP 149/72
--- NOTE | 2018-04-15 06:13 | EKG REPORT ---
SEVERITY:- ABNORMAL ECG - SINUS RHYTHM LEFT VENTRICULAR HYPERTROPHY ABNORMAL T, CONSIDER ISCHEMIA, INFERO-LATERAL LEADS : Confirmed by: Marcelino Grimes MD 15-Apr-2018 06:12:34
== END 2018-04-14 22:24 | disposition home or self-care (01) ==
LOC: ER 20:28
DX: S29.012A Strain of muscle and tendon of back wall of thorax, initial encounter (principal); M54.2 Cervicalgia; R51 Headache; X58.XXXA Exposure to other specified factors, initial encounter; Y93.H9 Activity, other involving exterior property and land maintenance, building and construction; Y92.007 Garden or yard of unspecified non-institutional (private) residence as the place of occurrence of the external cause; E78.00 Pure hypercholesterolemia, unspecified; I10 Essential (primary) hypertension; E11.9 Type 2 diabetes mellitus without complications; E03.9 Hypothyroidism, unspecified
CPT/HCPCS: 93005; 99283; 96372; 93010; A9270; J1885

== ENCOUNTER → 2018-08-21 | Outpatient (CLI) | payer MEDICARE ==
--- NOTE | 2018-08-21 12:26 | WOMENS IMAGING REPORT ---
EXAM DESCRIPTION: 3D SCREENING MAMMO BILAT COMPLETED DATE/TIME: 08/21/2018 11:37 am REASON FOR STUDY: ROUTINE BILATERAL SCREENING;Z12.31 Z12.31 ENCNTR SCREEN MAMMOGRAM FOR MALIGNANT N EOPLASM OF CHELSI COMPARISON: 08/17/2017 TECHNIQUE: Standard craniocaudal and mediolateral oblique views of each breast recorded using digita l acquisition and breast tomosynthesis. LIMITATIONS: None. FINDINGS: Findings present which are benign by mammographic criteria. No suspicious masses, calcifi cations or architectural distortion. Pertinent benign findings: Old left breast therapeutic changes with parenchymal volume loss post lump ectomy and skin thickening post radiation therapy Read with the assistance of CAD. .[facility] - R2 Cenova Version 1.3 .[facility] - R2 Cenova Version 1.3 .[facility] - R2 Cenova Version 2.4 .[facility] – [place] - R2 Cenova Version 2.4 .[facility] - R2 Electrode Cleaning Machine Operator Version 9.2 Benign mammographic findings may include one or more of the following: Smooth masses, popcorn/rim/co arse calcifications, asymmetries, post-procedure changes, and lesions with long-standing stability. IMPRESSION: BENIGN MAMMOGRAPHIC FINDINGS. BIRADS 2 BREAST DENSITY: c. The breasts are heterogeneously dense, which may obscure small masses. BIRAD: 2 BENIGN FINDING(S) RECOMMENDATION: RECOMMENDATION: ROUTINE SCREENING Please continue yearly bilateral screening mammography/tomosynthesis in July 2019 COMMENT: The patient has been notified of the results by letter per SA requirements. Additional no tification policies are in place for contacting patient with suspicious or incomplete findings. Quality ID #[id number]: The [employer] recommends an annual screening mammogram for women aged 40 years or over. This facility utilizes a reminder system to ensure that all patients receive reminder letters, and/or direct phone calls for appointments. This includes reminders for routine scr eening mammograms, diagnostic mammograms, or other Breast Imaging Interventions when appropriate. Th is patient will be placed in the appropriate reminder system. The [employer] (A[employer]) has developed recommendations for screening MRI of the breast s in certain patient populations, to be used in conjunction with mammography. Breast MRI surveillanc e may be appropriate for women with more than 20% lifetime risk of developing breast cancer as deter mined by genetic testing, significant family history of the disease, or history of mantle radiation f or Hodgkins Disease. ACR Practice Guidelines 2008. DBT Technology DBT is a type of tomographic mammography. With conventional mammography, overlapping breast tissue ma y make lesions difficult to detect, even with good compression. DBT uses an x-ray tube that rotates a round the breast, taking images at different angles. These images are then combined to create thin sl ices of the breast that the radiologist can view as a 3D reconstruction. The Hologic unit can perform full-field digital mammograms (2D imaging); or DBT (3D imaging); or both, in a combination mode that quickly performs both the mammogram and the tomosynthesis scan while the breast is still compressed. PQRS 6045F: Fluoroscopic imaging is not utilized for breast tomosynthesis. TECHNICAL DOCUMENTATION: FINDING NUMBER: (1) ASSESSMENT: (1) JOB ID: [id number] [employer]- All Rights Reserved Reading location - IP/workstation name: [email or web address]
== END ==
LOC: WI 11:10
PROVIDERS: ATTEND Internal Medicine Geriatric Medicine
DX: Z12.31 Encounter for screening mammogram for malignant neoplasm of breast (principal)
CPT/HCPCS: 77063; 77067

== ENCOUNTER 2019-05-14 19:46 | Observation (INO) | payer MEDICARE ==
[2019-05-14] MEDS ORDERED: ASPIRIN 81 MG TABLET, CHEWABLE PO ONE (20:30)
--- NOTE | 2019-05-14 21:30 | RADIOLOGY REPORT (SQ) ---
XR CHEST 2 VIEWS CLINICAL STATEMENT: cp COMPARISON: None FINDINGS: Heart is mildly enlarged. Aorta is uncoiled. There is no focal lung consolidation or pleural effusion. No evidence of pulmonary edema or pneumothorax. IMPRESSION: No acute cardiopulmonary disease.
[2019-05-14 21:53] LABS: ABSOLUTE BASOPHILS # (AUTO) 0.1 10^3/uL (0.0-0.2); ABSOLUTE EOSINOPHILS # (AUTO) 0.1 10^3/uL (0.0-0.6); ABSOLUTE LYMPHOCYTES (AUTO) 2.4 10^3/uL (0.5-4.7); ABSOLUTE MONOCYTES (AUTO) 0.7 10^3/uL (0.1-1.4); ABSOLUTE NEUT (AUTO) 4.6 10^3/uL (1.7-8.2); BASOPHILS % (AUTO) 1.1 % (0-2); EOSINOPHILS % (AUTO) 0.8 % (0-6); HEMATOCRIT 40.7 % (36.0-47.0); HEMOGLOBIN 13.4 g/dL (12.0-15.5); LYMPHOCYTES % (AUTO) 30.8 % (13-45); MEAN CORPUSCULAR HEMOGLOBIN 28.8 pg (27.0-33.4); MEAN CORPUSCULAR HGB CONC 32.9 g/dL (32.0-36.0); MEAN CORPUSCULAR VOLUME 87 fl (80-97); MONOCYTES % (AUTO) 8.7 % (3-13); PLATELET COUNT 147 10^3/uL (150-450); RED BLOOD COUNT 4.66 10^6/uL (3.72-5.28); RED CELL DISTRIBUTION WIDTH 14.1 % (11.5-14.0); SEGMENTED NEUTROPHILS % (AUTO) 58.6 % (42-78); TOTAL CELLS COUNTED % (AUTO) 100 %; WHITE BLOOD COUNT 7.8 10^3/uL (4.0-10.5)
--- NOTE | 2019-05-14 21:54 | EKG REPORT ---
SEVERITY:- ABNORMAL ECG - SINUS RHYTHM PROBABLE LEFT ATRIAL ABNORMALITY LEFT AXIS DEVIATION LEFT VENTRICULAR HYPERTROPHY : Confirmed by: Marcelino Grimes MD 14-May-2019 21:53:37
[2019-05-14 22:21] LABS: ALBUMIN 4.6 g/dL (3.5-5.0); ALKALINE PHOSPHATASE 62 U/L (38-126); ANION GAP 10 (5-19); ASPARTATE AMINO TRANSFERASE 31 U/L (14-36); BILIRUBIN,DIRECT 0.1 mg/dL (0.0-0.4); BILIRUBIN,TOTAL 0.5 mg/dL (0.2-1.3); BLOOD UREA NITROGEN 20 mg/dL (7-20); CALCIUM 10.6 mg/dL (8.4-10.2); CARBON DIOXIDE 27 mmol/L (22-30); CHLORIDE 104 mmol/L (98-107); CREATINE KINASE 152 U/L (30-135); GLUCOSE 136 mg/dL (75-110); POTASSIUM 3.6 mmol/L (3.6-5.0); TOTAL PROTEIN 7.7 g/dL (6.3-8.2)
[2019-05-14 22:24] LABS: CREATINE KINASE MB 1.28 ng/mL (<4.55)
[2019-05-14 22:26] LABS: TROPONIN I < 0.012 ng/mL
--- NOTE | 2019-05-15 00:37 | ER Document Report ---
HPI - HPI Patient complains to provider of: cp x 3 days Time Seen by Provider: 05/14/19 23:29 Onset: Yesterday Onset/Duration: Gradual, Waxing and waning, Worse Quality of pain: Pressure Severity: Moderate Pain Level: 3 Context: 73-year-old female with a history of diabetes, hypertension, hyperlipidemia, GERD, who states yesterday she woke up with some substernal chest pressure that is nonradiating and has persisted throughout the day and became worse last night in severity so she came in for evaluation. She states she also has some shor tness of breath. She has had increased dyspnea on exertion for the last 2 weeks as well. She has not had a stress test in the last 10 years. She states her sugars usually run well. She denies any prior history of CHF. She denies any URI symptoms or cough. pos family hx of of father and brother of heart dz per pt in their 40s. no syncope. no palpitations. no hx of mi, cva, tia, chf, or cad. no ripping or tearing sensation. denies any blood thinners other than a baby asa daily. No prior history of blood clots. No recent long distance travel/immobilization, recent surgery, exogenous estrogen use, hemoptysis, history of recent cancer, or calf pain/swelling. No prior history of arr hythmias. no recent abx or steroids. no change in diet or meds. no hx of asthma. denies smoking. no orthopnea or pnd. no other complaints at this time. she hasn't taken anything for her sx. pcp is yeni Associated Symptoms: Chest pain, Shortness of breath Exacerbated by: Movement Relieved by: Remaining still Similar symptoms previously: No Recently seen / treated by doctor: No - ROS Systems Reviewed and Negative: Yes All other systems reviewed and negative - To include 10 systems, unless mentioned in the hpi. - REPRODUCTIVE Reproductive: DENIES: : - DERM Skin Color: Normal Past Medical History - General Information source: Patient, Relative - - Social History Smoking Status: Never Smoker Frequency of alcohol use: None Drug Abuse: None Lives with: Spouse/Significant other Family History: CAD - father and brother, Hypertension Patient has suicidal ideation: No Patient has homicidal ideation: No - Past Medical History Cardiac Medical History: Reports: Hx Hypercholesterolemia, Hx Hypertension Denies: Hx Atrial Fibrillation, Hx Congestive Heart Failure, Hx DVT, Hx Heart Attack, Hx Pulmonary Embolism Pulmonary Medical History: Denies: Hx Asthma, Hx COPD, Hx Sleep Apnea Endocrine Medical History: Reports: Hx Diabetes Mellitus Type 2, Hx Hypothyroidism Renal/ Medical History: Denies: Hx End Stage Renal Disease, Hx Hemodialysis, Hx Peritoneal Dialysis Malignancy Medical History: Reports: Hx Breast Cancer - diagnosed 2003 s/p Lumpectomy and radiation therapy. No chemo. in remission GI Medical History: Reports: Hx Gastroesophageal Reflux Disease Musculoskeletal Medical History: Reports Hx Arthritis Psychiatric Medical History: Reports: Hx Depression Past Surgical History: Reports: Hx Breast Surgery - lumpectomy, Hx Hysterectomy - Immunizations Immunizations up to date: Yes Vertical Provider Document - CONSTITUTIONAL Agree With Documented VS: Yes Exam Limitations: No Limitations General Appearance: WD/WN Notes: >>>> PHYSICAL_EXAM: GENERAL_APPEARANCE: well_nourished, alert, cooperative, no_acute_distress, no_obvious_discomfort. pleasant, elderly black female, smiling, speaking in full sentences, in no sign of pain or resp distress, at bedside VITALS: reviewed, see vital signs table. HEAD: no_swelling\tenderness on the head. normocephalic. atraumatic. no uriarte signs. no raccoons eyes. EYES: PERRL, EOMI, conjunctiva_clear. NOSE: no_nasal_discharge. MOUTH: (-)decreased moisture. THROAT: no_tonsilar_inflammation/exudate/hypertrophy, no_airway_obstruction. no_lymphadenopathy NECK: supple, no_neck_tenderness, (-)thyromegaly. full rom. full strength. no jvd. no carotid bruit. no meningeal signs. BACK: no_back_tenderness. CHEST_WALL: no_chest_tenderness. no overlying skin changes LUNGS: no_wheezing, ctab (-)accessory muscle use, good air exchange bilateral. HEART: normal_rate, normal_rhythm, ABDOMEN: normal_BS, soft, no_abd_tenderness, (-)guarding, (-)rebound, no distension or peritoneal signs. no cva ttp EXTREMITIES: strength 5/5 in all_extremities, good pulses in all_extremities, no_swelling\tenderness in the extremities, no_edema. full rom. normal gait. good pulses. brisk cap refill. good hand mapping specialist. neg shannon sign NEURO: motor and sensation intact, cranial nerves 2-12 intact, cerebellar fxn intact SKIN: warm, dry, good_color, no_rash. MENTAL_STATUS: speech_clear, oriented_X_3, normal_affect, responds_appropriately to questions. - INFECTION CONTROL TRAVEL OUTSIDE OF THE [place] IN LAST 30 DAYS: No Course - Re-evaluation Re-evalutation: 05/15/19 04:04 Pt here for chest pressure and shortness of breath that resolved with 3 sublingual nitro and aspirin here. Her heart score is a 6. She has not had a recent stress test. Her labs were unremarkable. EKG unchanged from prior and overall unremarkable, no STEMI, reviewed by Dr. Leahy. Her chest x-ray showed some mild cardiomegaly but was otherwise negative per radiology and reviewed by myself. She is not tachycardic or hypoxic. Her pain is not reproducible on exam. She has no URI symptoms to account for her symptoms that she came to the ER for. She was given 1 in Nitropaste here when she was chest pain-free. She got very minimal relief with a DuoNeb. The patient's primary care doctor is Dr. Rivera, I did consult him at 3 AM and he stated that since the patient had had 2 negative troponins and her EKG was unremarkable that I should discharge the patient home with a heart score of 6. I then discussed the case with my attending, Dr. Leahy, who agrees that with a heart score is 6 and relief with nitro the patient should not be discharged as she has a 12-16.6% risk of adverse cardiac event and it is recommended these pts be admitted and she that she have her troponins trended and a possible stress test and further work-up of her symptoms. I did call Dr. Rivera back however fabric separator operator was not able to reach him and left a message. 30 minutes later I had the fabric separator operator page him again and he returned my call then and still stated he would not admit the patient. Dr. Leahy then asked Dr. Rivera to come to the ER to discharge the patient if he felt the patient should be discharged or that we would get the hospitalist, Dr. Weston, to admit his patient. Per Dr. Leahy, Dr. Rivera said to call Dr. Weston for admission of the pt. I did then call Dr. Weston about this patient who needs to be admitted for a chest pain rule out given her heart score of 6 and pain resolved with nitro however he felt like this was Dr. Rivera's responsibility since it was his patient. Dr. Leahy then spoke with Dr. Weston who then finally agreed to admit the patient for cp r/o. Care transferred to hospitalist in stable condition. Please refer to their note for further details of the visit. On reexam, pt improved with tx listed. remained stable. nontoxic. well appearing. pain controlled. vss case discussed with ER Attending, Dr. Leahy, who directed and agrees with plan of care a Heart score is a: 6 Documentation achieved through voice recording which may lead to some occasional accidental typographical errors. Extensive efforts have been made to proof read documentation to make sure these are the least as possible. Category Date Time Status Cardiolite Stress Test [PHARMACOLOGICAL STRESS TEST] [ Cardiology 05/15/19 Ordered CARDIO] Routine Adult Intake and Output [RC] Q6 Care 05/15/19 03:51 Active Bathroom Privileges [RC] CONTINUOUS Care 05/15/19 03:51 Active Continuous Public Relations [RC] CONTINUOUS Care 05/15/19 03:51 Active Continuous Cardiac Monitoring (ED) CONTINUOUS Care 05/14/19 20:30 Completed EKG Documentation STAT Care 05/14/19 20:03 Completed Leave Floor without Cardiac Mo [RC] CONTINUOUS Care 05/15/19 03:51 Active Oxygen (ED) Nasal Cannula 2 lpm Care 05/14/19 20:30 Active Patient Education-VTE [RC] QSHIFT Care 05/15/19 03:48 Active Patient Status-Admission .Routine Care 05/15/19 03:47 Active Pulse Oximeter Continuous (ED) CONTINUOUS Care 05/14/19 20:30 Active Saline Lock (ED) NOW Care 05/14/19 20:30 Active Saline Lock [RC] .routine Care 05/15/19 03:51 Active César Hose [RC] QSHIFT Care 05/15/19 03:48 Active Up Ad Leslie [RC] .ROUTINE Care 05/15/19 03:51 Active Adult Diet [DIET] Diet 05/15/19 Breakfast Active CHEST 2 VIEWS [RAD] Stat Exams 05/14/19 Completed NM HEART MUSC SPECT-CARDIOLITE [NM] Routine Exams 05/15/19 03:50 Ordered BNP (In-House) [NT PRO BNP] [CHEM] Stat Lab 05/15/19 00:44 Completed CBC WITH DIFF [HEME] Stat Lab 05/14/19 21:39 Completed COMPREHENSIVE METABOLIC PANEL [CHEM] Stat Lab 05/14/19 21:39 Completed CREATINE KINASE MB [CHEM] Q6 Lab 05/15/19 04:00 Ordered CREATINE KINASE MB [CHEM] Q6 Lab 05/15/19 10:00 Ordered CREATINE KINASE MB [CHEM] Q6 Lab 05/15/19 16:00 Ordered CREATINE KINASE MB [CHEM] Stat Lab 05/14/19 21:39 Completed CREATINE KINASE [CHEM] Q6 Lab 05/15/19 04:00 Ordered CREATINE KINASE [CHEM] Q6 Lab 05/15/19 10:00 Ordered CREATINE KINASE [CHEM] Q6 Lab 05/15/19 16:00 Ordered CREATINE KINASE [CHEM] Stat Lab 05/14/19 21:39 Completed Cardiac Enzymes [Cardiac Enzymes Q6H X 3] [CHEM] Q6 Lab 05/15/19 04:00 Or dered Cardiac Enzymes [Cardiac Enzymes Q6H X 3] [CHEM] Q6 Lab 05/15/19 10:00 Ordered Cardiac Enzymes [Cardiac Enzymes Q6H X 3] [CHEM] Q6 Lab 05/15/19 16:00 Ordered FREE T3 [CHEM] Routine Lab 05/15/19 03:50 Ordered MAGNESIUM [CHEM] Stat Lab 05/15/19 00:44 Completed TROPONIN I [CHEM] Q6 Lab 05/15/19 04:00 Ordered TROPONIN I [CHEM] Q6 Lab 05/15/19 10:00 Ordered TROPONIN I [CHEM] Q6 Lab 05/15/19 16:00 Ordered TROPONIN I [CHEM] Stat Lab 05/14/19 21:39 Completed TROPONIN I [CHEM] Stat Lab 05/15/19 00:44 Completed Aspirin [Aspirin 81 mg Chewable Tablet] Med 05/15/19 10:00 Active 243 mg PO DAILY Aspirin [Aspirin 81 mg Chewable Tablet] Med 05/14/19 20:30 Discontinued 324 mg PO NOW ONE Dextrose 50%-Water [Dextrose Inj 50% Syringe (25 gm/50 Med 05/15/19 03:54 Active ml)] 12.5 gm IV PRN PRN Dextrose 50%-Water [Dextrose Inj 50% Syringe (25 gm/50 Med 05/15/19 03:54 Active ml)] 25 gm IV PRN PRN Dextrose [Glutose 40% Gel 15 gm Tube] Med 05/15/19 03:54 Active 15 gm PO PRN PRN Dextrose [Glutose 40% Gel 15 gm Tube] Med 05/15/19 03:54 Active 30 gm PO PRN PRN Docusate Sodium [Colace 100 mg Capsule] Med 05/15/19 10:00 Active 100 mg PO BID Famotidine [Pepcid 20 mg Tablet] Med 05/15/19 10:00 Active 20 mg PO Q12 Glucagon,Human Recombinant [Glucagen Inj 1 mg Vial] Med 05/15/19 03:54 Active 1 mg IM PRN PRN Heparin Sodium,Porcine [Heparin Inj 5,000 Units/ml 1 ml Med 05/15/19 06:00 Ordered Vial] 5,000 unit SUBCUT Q8 Insulin Regular, Human [Humulin R (Pyxis) Insulin 100 Med 05/15/19 03:54 Active Unit/ml 3Ml] 0 - 15 unit SUBCUT ACHSP PRN Ipratropium/Albuterol Sulfate [Duoneb 3 ml Ampul] Med 05/15/19 01:34 Discontinued 3 ml NEB NOW ONE Mag Hydrox/Al Hydrox/Simeth [Maalox Plus Susp 30 Udcup] Med 05/15/19 03:51 Active 30 ml PO Q6HP PRN Magnesium Hydroxide [Milk of Magnesia 30 ml Udcup] Med 05/15/19 03:51 Active 30 ml PO DAILYP PRN Nitroglycerin [Nitrol 2% Ointment 1Gm Packet] Med 05/15/19 02:49 Discontinued 1 gm TP NOW ONE Nitroglycerin [Nitrostat 0.4 mg (1/150 Gr) Tabs 25/ Med 05/15/19 01:34 Discon tinued Bottle] 1 tab SL ASDIR PRN Normal Saline [Saline Flush 2.5 ml Monoject Prefil Med 05/15/19 06:00 Active Syrin] 2.5 ml IV Q8 Ondansetron HCl/Pf [Zofran Inj/Pf 4 mg/2 ml Sdv] Med 05/15/19 03:51 Active 4 mg IV Q4HP PRN Temazepam [Restoril 15 mg Capsule] Med 05/15/19 03:51 Active 15 mg PO HSP PRN AccuCheck [RC] ACHS Oth 05/15/19 03:54 Active EKG ER ONLY [ER] Stat Ot 05/14/19 Completed Mechanical Prophylaxis .ROUTINE Ot 05/15/19 04:00 Ordered Pharmacological Prophylaxis .ROUTINE Ot 05/15/19 04:00 Ordered Resuscitation Status Routine [facility] 05/15/19 03:47 Ordered Vital Signs [RC] Q4 Ot 05/15/19 03:51 Active Weight [RC] Q6AM Ot 05/15/19 03:51 Active Nebulizer Therapy Routine [RESPCARE] NOW Ther 05/15/19 01:34 Active 05/15/19 04:17 - Vital Signs Vital signs: Temp Pulse Resp BP Pulse Ox 98.7 F 64 14 150/83 H 100 05/14/19 20:17 05/14/19 20:17 05/14/19 23:00 05/14/19 23:00 05/14/19 23:00 - Laboratory Result Diagrams: 05/14/19 21:39 05/14/19 21:39 Laboratory results interpreted by me: 05/14/19 05/14/19 21:39 21:39 RDW 14.1 H Plt Count 147 L Glucose 136 H Calcium 10.6 H Creatine Kinase 152 H 05/15/19 00:36 Labs- Entire Visit 05/14/19 05/14/19 05/14/19 21:39 21:39 21:39 WBC 7.8 RBC 4.66 Hgb 13.4 Hct 40.7 MCV 87 MCH 28.8 MCHC 32.9 RDW 14.1 H Plt Count 147 L Lymph % (Auto) 30.8 [place] % (Auto) 8.7 Eos % (Auto) 0.8 Baso % (Auto) 1.1 Absolute Neuts (auto) 4.6 Absolute Lymphs (auto) 2.4 Absolute Monos (auto) 0.7 Absolute Eos (auto) 0.1 Absolute Basos (auto) 0.1 Seg Neutrophils % 58.6 Sodium 141.0 Potassium 3.6 Chloride 104 Carbon Dioxide 27 Anion Gap 10 BUN 20 Creatinine 0.86 Est GFR ( Amer) > 60 Est GFR (MDRD) Non-Af > 60 Glucose 136 H Calcium 10.6 H Total Bilirubin 0.5 Direct Bilirubin 0.1 Neonat Total Bilirubin Not Reportable Neonat Direct Bilirubin Not Reportable Neonat Indirect Bili Not Reportable AST 31 ALT 18 Alkaline Phosphatase 62 Creatine Kinase 152 H CK-MB (CK-2) 1.28 Troponin I < 0.012 Total Protein 7.7 Albumin 4.6 - Diagnostic Test Radiology reviewed: Image reviewed, Reports reviewed Radiology results interpreted by me: 05/15/19 00:36 Chest X-Ray 05/14/19 00:00 IMPRESSION: No acute cardiopulmonary disease. - EKG Interpretation by Me EKG shows normal: Sinus rhythm Rate: Normal - 68 bpm, no stemi, reviewed by dr leahy [place]/QRS: Left axis deviation Voltage: Consistant with LVH P Waves: LAE When compared to previous EKG there are: No significant change Discharge - Discharge Clinical Impression: ZUÑIGA (dyspnea on exertion), Shortness of breath Chest pain Qualifiers: Chest pain type: unspecified Qualified Code(s): R07.9 - Chest pain, unspecified Condition: Stable Disposition: ADMITTED OBSERVATION Admitting Provider: Trista (Hospitalist) - who accepted the pt at 3:45a Unit Admitted: Telemetry Referrals: KRYSTINA RIVERA MD [Primary Care Provider] - Follow up as needed
[2019-05-15] MEDS ORDERED: IPRATROPIUM/ALBUTEROL 0.5-2.5 MG/3 ML AMPUL NEB ONE (01:34)
[2019-05-15] MEDS: NITROGLYCERIN 0.4 MG/TAB 25 TAB/BOTTLE SL PRN ×2 (02:26→02:36)
[2019-05-15] MEDS ORDERED: NITROGLYCERIN 2% OINTMENT 1 GM PACKET TP ONE (02:49)
[2019-05-15] MEDS ORDERED: MAGNESIUM HYDROXIDE SUSP 30 ML UDCUP PO PRN (03:51)
[2019-05-15] MEDS ORDERED: ONDANSETRON HCL INJ/PF 4 MG/2 ML SDV IV PRN (03:51)
[2019-05-15] MEDS ORDERED: MAG HYDROX/AL HYDROX/SIMETH SUSP 30 ML UDCUP PO PRN (03:51)
[2019-05-15] MEDS ORDERED: TEMAZEPAM 15 MG CAPSULE PO PRN (03:51)
[2019-05-15] MEDS ORDERED: DEXTROSE 50%-WATER 25 GM/50 ML DISP.SYRIN IV PRN ×2 (03:54)
[2019-05-15] MEDS ORDERED: GLUCAGON,HUMAN RECOMB 1 MG INJ IM PRN (03:54)
[2019-05-15] MEDS ORDERED: DEXTROSE 40% GEL 15 GM TUBE PO PRN ×2 (03:54)
[2019-05-15] MEDS ORDERED: INSULIN REG, HUMAN 100 UNIT/ML 3 ML VIAL (PYX) SUBCUT PRN (03:54)
[2019-05-15] MEDS: HEPARIN SOD (PORCINE) 5,000 UNIT/ML 1 ML VIAL SUBCUT SCH ×2 (05:20→13:18)
[2019-05-15] MEDS ORDERED: FLUTICASONE NASAL SPRAY 50 MCG/SPRY 120 SPRAY/16 GM NASL SCH (06:00)
--- NOTE | 2019-05-15 06:22 | PDOC H&P ---
History of Present Illness Admission Date/PCP: 05/15/19 03:52 KRYSTINA RIVERA Patient complains of: Chest pain History of Present Illness: SHARDA BENSON is a 73 year old female who presented to the emergency room with a 1 day history of chest pain. Patient states that she woke up on the morning of 05/14/2019 with mild substernal chest pressure which persisted and gradually worsened throughout the day and evening becoming so severe that the patient felt that she needed to be seen in the emergency room. The pain was noted to be nonradiating and was accompanied by dyspnea and dyspnea on exertion. She denies other associated or accompanying signs or symptoms. She admits prior similar episodes of uncertain etiology. She has not identified any aggravating or ameliorating factors for her chest pain. In the emergency room the chest pain resolved after receiving sublingual nitroglycerin x3 and aspirin therapy. Initial cardiac enzymes and an EKG showed no evidence of acute m yocardial ischemia or injury. When the patient's primary care provider Dr. Rivera was contacted by the emergency room provider he refused to admit the patient insisting that she be sent home. Emergency room provider did not feel that the patient could be discharged and subsequently has consulted the hospitalist service to admit the patient for further evaluation and treatment. Past Medical History Cardiac Medical History: Reports: Hyperlipidema, Hypertension Denies: Atrial Fibrillation, Congestive Heart Failure, DVT, Myocardial Infarction, Pulmonary Embolism Pulmonary Medical History: Denies: Asthma, Chronic Obstructive Pulmonary Disease (COPD), Sleep Apnea EENT Medical History: Denies: Cataracts, Ears - Hearing aids Neurological Medical History: Denies: Hemorrhagic CVA, Ischemic CVA, Multiple Sclerosis, Seizures Endocrine Medical History: Reports: Diabetes Mellitus Type 2, Hypothyroidism, Obesity Denies: Diabetes Mellitus Type 1, Hyperthyroidism Renal/ Medical History: Denies: End Stage Renal Disease Malignancy Medical History: Reports: Breast Cancer - diagnosed 2003 s/p Lumpe ctomy and radiation therapy. No chemo. in remission GI Medical History: Reports: Gastroesophageal Reflux Disease Denies: Cirrhosis, Crohn's Disease, Hepatitis, Peptic Ulcer Disease, Ulcerative Colitis Musculoskeltal Medical History: Reports: Arthritis Denies: Gout Skin Medical History: Denies: Eczema, Psoriasis Psychiatric Medical History: Reports: Depression Denies: Alcohol Dependency, Substance Abuse, Tobacco Dependency Traumatic Medical History: Reports: None Hematology: Denies: Anemia, Bleeding Tendencies Infectious Medical History: Reports: None Past Surgical History Past Surgical History: Reports: Hysterectomy Social History Information Source: Patient Lives with: Spouse/Significant other Smoking Status: Never Smoker Frequency of Alcohol Use: Rare Hx Recreational Drug Use: No Drugs: None Hx Prescription Drug Abuse: No - Advance Directive Resuscitation Status: Full Code Surrogate healthcare decision maker:: Esteban Benson Family History Family History: CAD - father and brother: Coronary artery disease before age 40, before age 50, Hypertension Parental Family History Reviewed: Yes Children Family History Reviewed: No Sibling(s) Family History Reviewed.: Yes Medication/Allergy Home Medications: Alprazolam [Xanax 0.25 mg Tablet] 0.25 mg PO DAILYP PRN 10/30/17 Amlodipine Besylate [Norvasc 5 mg Tablet] 5 mg PO DAILY 10/30/17 Aspirin [Ecotrin 81 mg EC Tablet] 81 mg PO DAILY 10/30/17 Atorvastatin Calcium [Lipitor 20 mg Tablet] 20 mg PO QHS 10/30/17 Calcium Carbonate/Vitamin D3 [Calcium 600 + Vit D Tablet] 1 tab PO QAM 10/30/17 Citalopram Hydrobromide [Celexa 10 mg Tablet] 10 mg PO QHS 10/30/17 Fluticasone Propionate [Flonase Nasal [place] 50 Mcg/[place] 16 gm] 1 spray NASL DAILYP PRN 10/30/17 Metformin HCl [Glucophage 500 mg Tablet] 500 mg PO BID 10/30/17 Metoprolol Tartrate [Lopressor 50 mg Tablet] 50 mg PO Q12 10/30/17 Pyridoxine HCl [Vitamin B-6] 100 mg PO DAILY 10/30/17 Tramadol HCl [Ultram 50 mg Tablet] 50 mg PO DAILYP PRN 10/30/17 Diphenhydramine HCl [Benadryl] 25 mg PO Q8HP PRN 03/07/18 Pantoprazole Sodium [Protonix] 20 mg PO DAILYP PRN 03/07/18 Vitamin B Complex [Super B [id number]] 1 each PO DAILY 03/07/18 Famotidine [Pepcid 20 mg Tablet] 20 mg PO BID #30 tablet 03/08/18 Methylprednisolone [Medrol Dosepack (4 mg/Tab) 21 Tab/Dosepak] 4 mg PO ASDIR PRN #21 tab.ds.pk 03/08/18 Naproxen 500 mg PO BID #60 tablet 04/14/18 Allergies/Adverse Reactions: No Known Allergies Allergy (Verified 03/07/18 18:17) Review of Systems Constitutional: ABSENT: chills, fever(s) Eyes: ABSENT: visual disturbances, other - Eye pain Ears: ABSENT: hearing changes, other - Ear pain Nose, Mouth, and Throat: PRESENT: other - Chronic nasal congestion. ABSENT: mouth pain, sore throat Cardiovascular: PRESENT: as per HPI, chest pain, dyspnea on exertion. ABSENT: edema, orthropnea, palpitations Respiratory: PRESENT: as per HPI, dyspnea. ABSENT: cough Gastrointestinal: ABSENT: abdominal pain, constipation, diarrhea, nausea, vomiting Genitourinary: ABSENT: dysuria, hematuria Musculoskeletal: ABSENT: back pain, joint swelling, muscle weakness Integumentary: ABSENT: pruritus, rash Neurological: ABSENT: confusion, convulsions, focal weakness, memory loss, syncope Psychiatric: ABSENT: anxiety, depression Endocrine: ABSENT: cold intolerance, heat intolerance Hematologic/Lymphatic: ABSENT: easy bleeding, easy bruising Allergic/Immunologic: ABSENT: seasonal rhinorrhea Physical Exam Vital Signs: Temp Pulse Resp BP Pulse Ox 98 F 55 L 14 114/68 98 05/15/19 04:16 05/15/19 04:16 05/15/19 04:16 05/15/19 04:16 05/15/19 04:16 Intake & Output 05/13/19 05/14/19 05/15/19 23:59 23:59 23:59 Weight 76 kg General appearance: PRESENT: no acute distress, cooperative Head exam: PRESENT: atraumatic, normocephalic Eye exam: PRESENT: conjunctiva pink. ABSENT: conjunctival injection, scleral icterus Ear exam: PRESENT: normal external ear exam. ABSENT: bleeding, drainage Mouth exam: PRESENT: dry mucosa, neck supple Neck exam: ABSENT: thyromegaly, tracheal deviation Respiratory exam: PRESENT: clear to auscultation [place], symmetrical, unlabored Cardiovascular exam: PRESENT: RRR. ABSENT: clicks, gallop, rubs Pulses: PRESENT: normal radial pulses, normal dorsalis pedis pul Vascular exam: PRESENT: normal capillary refill. ABSENT: pallor GI/Abdominal exam: PRESENT: normal bowel sounds, soft Rectal exam: PRESENT: deferred Extremities exam: ABSENT: joint swelling, pedal edema Musculoskeletal exam: ABSENT: deformity, dislocation Neurological exam: PRESENT: alert, oriented to person, oriented to place, oriented to time, oriented to situation, CN II-XII grossly intact. ABSENT: motor sensory deficit Psychiatric exam: PRESENT: appropriate affect, normal mood Skin exam: PRESENT: dry, intact, warm. ABSENT: jaundice, rash, urticaria Results Laboratory Results: 05/14/19 21:39 05/14/19 21:39 05/14/19 05/14/19 05/14/19 21:39 21:39 21:39 WBC 7.8 RBC 4.66 Hgb 13.4 Hct 40.7 MCV 87 MCH 28.8 MCHC 32.9 RDW 14.1 H Plt Count 147 L Seg Neutrophils % 58.6 Sodium 141.0 Potassium 3.6 Chloride 104 Carbon Dioxide 27 Anion Gap 10 BUN 20 Creatinine 0.86 Est GFR ( Amer) > 60 Glucose 136 H Calcium 10.6 H Magnesium Total Bilirubin 0.5 AST 31 Alkaline Phosphatase 62 Total Protein 7.7 Albumin 4.6 Free T3 pg/mL 3.63 05/15/19 00:44 WBC RBC Hgb Hct MCV MCH MCHC RDW Plt Count Seg Neutrophils % Sodium Potassium Chloride Carbon Dioxide Anion Gap BUN Creatinine Est GFR ( Amer) Glucose Calcium Magnesium 1.9 Total Bilirubin AST Alkaline Phosphatase Total Protein Albumin Free T3 pg/mL 05/14/19 05/14/19 05/15/19 21:39 21:39 00:44 Creatine Kinase 152 H CK-MB (CK-2) 1.28 Troponin I < 0.012 < 0.012 NT-Pro-B Natriuret Pep 05/15/19 00:44 Creatine Kinase CK-MB (CK-2) Troponin I NT-Pro-B Natriuret Pep 68 Impressions: Chest X-Ray 05/14/19 00:00 IMPRESSION: No acute cardiopulmonary disease. Assessment and Plan - Diagnosis (1) Chest pain Qualifiers: Chest pain type: unspecified Qualified Code(s): R07.9 - Chest pain, unspecified Is this a current diagnosis for this admission?: Yes Plan: Patient will have serial cardiac enzymes performed and if negative she will have a Cardiolite stress test performed. Her chest pain will be treated with morphine sulfate 2-4 mg IV every 2 hours on an as needed basis via sliding scale for pain. (2) HTN (hypertension) Qualifiers: Hypertension type: essential hypertension Qualified Code(s): I10 - Essential (primary) hypertension Is this a current diagnosis for this admission?: Yes Plan: Patient will be continued on her usual antihypertensive regiment and a cardiac diet. Blood pressure be reassessed frequently throughout her hospital stay. (3) HLD (hyperlipidemia) Qualifiers: Hyperlipidemia type: pure hypercholesterolemia Qualified Code(s): E78.00 - Pure hypercholesterolemia, unspecified; E78.0 - Pure hypercholesterolemia Is this a current diagnosis for this admission?: Yes Plan: A lipid profile will be obtained to assess patient's current therapeutic efficacy. She will be continued on her usual therapeutic treatment for her hyperlipidemia/hypercholesterolemia. (4) Diabetes mellitus type 2 in nonobese Is this a current diagnosis for this admission?: Yes Plan: Patient be continued on her usual therapy for diabetes as well as a diabetic diet. Before meals and at bedtime Accu-Cheks will be obtained and hyperglycemia will be treated with a sliding scale insulin and hypoglycemia will be treated per protocol. (5) GERD (gastroesophageal reflux disease) Qualifiers: Esophagitis presence: without esophagitis Qualified Code(s): K21.9 - Gastro-esophageal reflux disease without esophagitis Is this a current diagnosis for this admission?: Yes Plan: Patient be continued on her usual therapy for gastroesophageal reflux disorder. - Time Time Spent with patient: 25-34 minutes Medications reviewed and adjusted accordingly: Yes Anticipated discharge: Home - Inpatient Certification Based on my medical assessment, after consideration of the patient's comorbidities, presenting symptoms, or acuity I expect that the services needed warrant INPATIENT care.: No I certify that my determination is in accordance with my understanding of Medicare's requirements for reasonable and necessary INPATIENT services [42 CFR 412.3e].: No Medical Necessity: Significant Comorbidiites Make Outpatient Treatment Too Risky, Need Close Monitoring Due to Risk of Patient Decompensation, Need For Continuous Telemetry Monitoring
[2019-05-15 08:30] LABS: CREATINE KINASE MB 1.01 ng/mL (<4.55)
[2019-05-15 08:44] LABS: TROPONIN I < 0.012 ng/mL
[2019-05-15] MEDS ORDERED: ASPIRIN 81 MG TABLET, CHEWABLE PO SCH (10:00)
[2019-05-15] MEDS ORDERED: DOCUSATE SODIUM 100 MG CAPSULE PO SCH (10:00)
[2019-05-15] MEDS ORDERED: FAMOTIDINE 20 MG TABLET PO SCH (10:00)
[2019-05-15 14:10] LABS: CREATINE KINASE MB 0.81 ng/mL (<4.55)
[2019-05-15 14:20] LABS: TROPONIN I < 0.012 ng/mL
[2019-05-15] MEDS ORDERED: REGADENOSON INJ 0.4 MG/5 ML DISP.SYRIN IV ONE (14:29)
--- NOTE | 2019-05-15 16:12 | PDOC DISCHARGE SUMMARY ---
General - Admit/Disc Date/PCP Admission Date/Primary Care Provider: 05/15/19 03:52 KRYSTINA MIGUEL Discharge Date: 05/15/19 - Discharge Diagnosis (1) Chest pain Is this a current diagnosis for this admission?: Yes Summary: The patient had a negative stress test and serial troponins were negative. Blood pressure was unremarkable. EKG was unremarkable. Her chest pain is likely due to reflux. (2) HLD (hyperlipidemia) Is this a current diagnosis for this admission?: Yes Summary: Continue cardiac diet. Further management per Dr. Olivo. (3) HTN (hypertension) Is this a current diagnosis for this admission?: Yes Summary: Blood pressure is slightly above ideal control. Further management per Dr. Olivo. (4) Diabetes mellitus type 2 in nonobese Is this a current diagnosis for this admission?: Yes Summary: Glucose readings were above the normal range. Follow diabetic diet and defer further management to Dr. Olivo. (5) GERD (gastroesophageal reflux disease) Is this a current diagnosis for this admission?: Yes Summary: Consider increasing her proton pump inhibitor. Further follow-up with Dr. Olivo. - Additional Information Resuscitation Status: Full Code Discharge Diet: Cardiac Discharge Activity: Activity As Tolerated Prescriptions: Albuterol Sulfate [Ventolin Hfa 8 gm Mdi (1 Mdi/ER Disp)] 2 puff IH Q4 PRN 30 Days #1 inhaler PRN Reason: Shortness Of Breath Home Medications: Albuterol Sulfate [Ventolin Hfa 8 gm Mdi (1 Mdi/ER Disp)] 2 puff IH Q4 PRN 30 Days #1 inhaler 05/15/19 Alprazolam [Xanax 0.25 mg Tablet] 0.25 mg PO DAILYP PRN 05/15/19 Aspirin [Ecotrin 81 mg EC Tablet] 81 mg PO DAILY 05/15/19 Atorvastatin Calcium [Lipitor 20 mg Tablet] 20 mg PO QHS 05/15/19 Citalopram Hydrobromide [Celexa 10 mg Tablet] 10 mg PO QHS 05/15/19 Cyanocobalamin (Vitamin B-12) [Vitamin B-12] 1,000 mcg PO DAILY 05/15/19 Famotidine [Pepcid 20 mg Tablet] 20 mg PO BID 05/15/19 Fluticasone Propionate [Flonase Nasal [place] 50 Mcg/[place] 16 gm] 1 spray NASL DAILYP PRN 05/15/19 Hydrochlorothiazide [Hydrodiuril 25 mg Tablet] 25 mg PO DAILY 05/15/19 Metformin HCl [Glucophage 500 mg Tablet] 500 mg PO BID 05/15/19 Metoprolol Tartrate [Lopressor 50 mg Tablet] 50 mg PO Q12 05/15/19 Terazosin HCl [Hytrin] 10 mg PO BID 05/15/19 Tramadol HCl [Ultram 50 mg Tablet] 50 mg PO DAILYP PRN 05/15/19 History of Present Illness Patient complains of: Chest pain History of Present Illness: SHARDA BENSON is a 73 year old female patient of Dr. Olivo. She presented to the emergency department with complaints of chest pain. She does report a history of hypertension and her initial evaluation revealed a systolic blood pressure of 150. Her initial troponins were negative and her EKG was unremarkable. She was referred to the hospital service for admission. Hospital Course Hospital Course: Unremarkable hospital course. Stress test was negative. The patient was discharged home. She will follow-up with Dr. Olivo. Physical Exam Vital Signs: Temp Pulse Resp BP Pulse Ox 98.3 F 59 L 12 137/80 H 100 05/15/19 12:15 05/15/19 12:15 05/15/19 12:15 05/15/19 12:15 05/15/19 12:15 Intake & Output 05/14/19 05/15/19 05/16/19 06:59 06:59 06:59 Intake Total 0 Output Total 250 Balance -250 Weight 70.1 kg General appearance: PRESENT: no acute distress, cooperative, well-developed Head exam: PRESENT: atraumatic, normocephalic Ear exam: PRESENT: normal external ear exam. ABSENT: bleeding, drainage Mouth exam: PRESENT: moist, tongue midline Respiratory exam: PRESENT: rales - Faint rales at bases, symmetrical, unlabored. ABSENT: accessory muscle use, rhonchi, tachypnea, wheezes Cardiovascular exam: PRESENT: RRR, +S1, +S2 GI/Abdominal exam: PRESENT: normal bowel sounds, soft, other - Pendulous abdomen. ABSENT: distended, guarding, tenderness Extremities exam: PRESENT: pedal edema Musculoskeletal exam: PRESENT: ambulatory Neurological exam: PRESENT: alert, awake, oriented to person, oriented to place, oriented to time, oriented to situation, CN II-XII grossly intact Psychiatric exam: PRESENT: flat affect. ABSENT: agitated, anxious Focused psych exam: ABSENT: delusional, restlessness Skin exam: PRESENT: dry, normal color, warm. ABSENT: rash Results Laboratory Results: 05/14/19 21:39 05/14/19 21:39 05/14/19 05/14/19 05/14/19 21:39 21:39 21:39 WBC 7.8 RBC 4.66 Hgb 13.4 Hct 40.7 MCV 87 MCH 28.8 MCHC 32.9 RDW 14.1 H Plt Count 147 L Seg Neutrophils % 58.6 Sodium 141.0 Potassium 3.6 Chloride 104 Carbon Dioxide 27 Anion Gap 10 BUN 20 Creatinine 0.86 Est GFR ( Amer) > 60 Glucose 136 H Calcium 10.6 H Magnesium Total Bilirubin 0.5 AST 31 Alkaline Phosphatase 62 Total Protein 7.7 Albumin 4.6 Free T3 pg/mL 3.63 05/15/19 00:44 WBC RBC Hgb Hct MCV MCH MCHC RDW Plt Count Seg Neutrophils % Sodium Potassium Chloride Carbon Dioxide Anion Gap BUN Creatinine Est GFR ( Amer) Glucose Calcium Magnesium 1.9 Total Bilirubin AST Alkaline Phosphatase Total Protein Albumin Free T3 pg/mL 05/14/19 05/14/19 05/15/19 21:39 21:39 00:44 Creatine Kinase 152 H CK-MB (CK-2) 1.28 Troponin I < 0.012 < 0.012 NT-Pro-B Natriuret Pep 05/15/19 05/15/19 05/15/19 00:44 07:40 07:40 Creatine Kinase 123 CK-MB (CK-2) 1.01 Troponin I < 0.012 NT-Pro-B Natriuret Pep 68 05/15/19 05/15/19 13:21 13:21 Creatine Kinase 114 CK-MB (CK-2) 0.81 Troponin I < 0.012 NT-Pro-B Natriuret Pep Impressions: Chest X-Ray 05/14/19 00:00 IMPRESSION: No acute cardiopulmonary disease. Qualifiers - * PATIENT BEING DISCHARGED WITH ANY OF THE FOLLOWING DIAGNOSIS: No Acute Heart Failure - Is this a Heart Failure Patient?: No Plan Discharge Plan: Discharge to home. Follow-up with Dr. Olivo. Time Spent: Greater than 30 Minutes
[2019-05-15 17:00] VITALS: BP 127/69
--- NOTE | 2019-05-24 00:37 | DRAGON STRESS TEST REPORT ---
Intravenous Lexiscan Cardiolite stress test using single photon emmision computerized tomography. Date of procedure: 05/15/2019. Ordering Provider: Dr. Bony Bond. Patient's status: In Patient Indication: Chest pain. Coronary risk factors: Age, diabetes, hypertension, dyslipidemia, and family history of coronary artery disease. Resting EKG: Sinus Rhythm. EKG within normal limits. Stress EKG: No changes of ischemia. She had no chest pain or discomfort, no no arrhythmias seen. Reason for termination: Protocol. Conclusions: Normal EKG and hemodynamic response to IV Lexiscan. Nuclear data: At rest the patient was given 11.41 millicuries of technetium 99m sestamibi injected intravenously. As per protocol rest non gated SPECT images were obtained. Subsequently the patient was given intravenous Lexiscan at a dose of 0.4 mg in 5 mL intravenously, followed by flush with normal saline. Subsequently the stress dose of 34.3 millicuries of technetium 99m sestamibi was injected intravenously. As per protocol stress gated images were obtained. Nuclear interpretation: Review of images showed that all segments of the myocardium had normal perfusion at rest, and normal perfusion post stress with IV Lexiscan. All segments of the myocardium had normal motion, contraction, and thickening by gated study. T. I D. ratio was normal at 1.08. There is no transient ischemic dilatation of the left ventricle. Computer read rest, and stress left ventricular ejection fraction were 51 %, and 42 %, respectively. Visually both the stress and rest ejection fractions were normal, and greater than 55%. Conclusion: 1. There is no scintigraphic evidence of Lexiscan induced myocardial ischemia. 2. There is no scintigraphic evidence of myocardial infarction/scar. Recommendations: Aggressive risk factor modification, and treating the underlying co- morbidities. [facility]
== END 2019-05-15 17:13 | disposition home or self-care (01) ==
LOC: ER 19:46 → EH 05-15 03:52 → 5 05-15 04:50
PROVIDERS: ADMIT Emergency Medicine; ATTEND Emergency Medicine
DX: R07.89 Other chest pain (principal); E78.5 Hyperlipidemia, unspecified; I10 Essential (primary) hypertension; E11.9 Type 2 diabetes mellitus without complications; K21.9 Gastro-esophageal reflux disease without esophagitis; R06.00 Dyspnea, unspecified; R09.81 Nasal congestion; R06.09 Other forms of dyspnea; Z79.899 Other long term (current) drug therapy; Z85.3 Personal history of malignant neoplasm of breast; Z79.84 Long term (current) use of oral hypoglycemic drugs; Z92.3 Personal history of irradiation; Z82.49 Family history of ischemic heart disease and other diseases of the circulatory system; Z79.82 Long term (current) use of aspirin
CPT/HCPCS: 93005; 94640; 99285; 36415 ×2; 82553 ×2; 82962; 82550 ×2; 83735; 85025; 80053; 84484 ×2; 84481; 83880; 93017; 71046; 78452; 93010; G0378 ×2; A9500; J2785; A9270 ×4; Q9969; J7620

== ENCOUNTER → 2019-08-22 | Outpatient (CLI) | payer MEDICARE ==
--- NOTE | 2019-08-22 10:09 | WOMENS IMAGING REPORT ---
EXAM DESCRIPTION: 3D SCREENING MAMMO BILAT COMPLETED DATE/TIME: 08/22/2019 8:35 am REASON FOR STUDY: Z12.31 SCREENING MAMMO Z12.31 ENCNTR SCREEN MAMMOGRAM FOR MALIGNANT NEOPLASM OF B RE COMPARISON: 2016, 2017 EXAM PARAMETERS: Standard craniocaudal and mediolateral oblique views of each breast recorded using digital acquisition and breast tomosynthesis. Read with the assistance of CAD. .[facility] - [employer] Version 9.2 LIMITATIONS: None. FINDINGS: Findings present which are benign by mammographic criteria. No suspicious masses, calcific ations or architectural distortion. Pertinent benign findings: Benign bilateral breast parenchymal calcifications. Old post lumpectomy c hange lower outer quadrant left breast Benign mammographic findings may include one or more of the following: Smooth masses, popcorn/rim/coa rse calcifications, asymmetries, post-procedure changes, and lesions with long-standing stability. IMPRESSION: BENIGN MAMMOGRAPHIC FINDINGS. BIRADS 2 BREAST DENSITY: b. There are scattered areas of fibroglandular density. BIRAD: ASSESSMENT: 2 BENIGN FINDING(S) RECOMMENDATION: ROUTINE SCREENING Please continue yearly bilateral screening mammography/tomosynthesis in July 2020 COMMENT: The patient has been notified of the results by letter per MQSA requirements. Additional no tification policies are in place for contacting patient with suspicious or incomplete findings. Quality ID #225: The [employer] recommends an annual screening mammogram for women aged 40 years or over. This facility utilizes a reminder system to ensure that all patients receive reminder letters, and/or direct phone calls for appointments. This includes reminders for routine scr eening mammograms, diagnostic mammograms, or other Breast Imaging Interventions when appropriate. Th is patient will be placed in the appropriate reminder system. TECHNICAL DOCUMENTATION: FINDING NUMBER: (1) ASSESSMENT: (1) JOB ID: [id number] [employer]- All Rights Reserved Reading location - IP/workstation name: [email or web address]
== END ==
LOC: WI 07:55
PROVIDERS: ATTEND Internal Medicine Geriatric Medicine
DX: Z12.31 Encounter for screening mammogram for malignant neoplasm of breast (principal)
CPT/HCPCS: 77063; 77067

== ENCOUNTER → 2020-08-23 | Outpatient (CLI) | payer MEDICARE ==
--- NOTE | 2020-08-23 11:07 | WOMENS IMAGING REPORT ---
EXAM DESCRIPTION: 3D SCREENING MAMMO BILAT IMAGES COMPLETED DATE/TIME: 08/23/2020 10:32 am REASON FOR STUDY: ROUTINE BILATERAL SCREENING;Z12.31 Z12.31 ENCNTR SCREEN MAMMOGRAM FOR MALIGNANT N EOPLASM OF CHELSI COMPARISON: 2017 and subsequent. EXAM PARAMETERS: Standard craniocaudal and mediolateral oblique views of each breast recorded using digital acquisition and breast tomosynthesis. Read with the assistance of CAD. .[facility] - [employer] Version 9.2 LIMITATIONS: None. FINDINGS: Findings present which are benign by mammographic criteria. No suspicious masses, calcific ations or architectural distortion. Pertinent benign findings: Stable benign right calcifications. Stable benign left calcifications. U nchanged focal architectural distortion in the left breast related to previous surgery. Stable later al left breast partially circumscribed small mass. Benign mammographic findings may include one or more of the following: Smooth masses, popcorn/rim/coa rse calcifications, asymmetries, post-procedure changes, and lesions with long-standing stability. IMPRESSION: BENIGN MAMMOGRAPHIC FINDINGS. BIRADS 2 BREAST DENSITY: c. The breasts are heterogeneously dense, which may obscure small masses. BIRAD: ASSESSMENT: 2 BENIGN FINDING(S) RECOMMENDATION: ROUTINE SCREENING COMMENT: The patient has been notified of the results by letter per [place] requirements. Additional no tification policies are in place for contacting patient with suspicious or incomplete findings. Quality ID #225: The [employer] recommends an annual screening mammogram for women aged 40 years or over. This facility utilizes a reminder system to ensure that all patients receive reminder letters, and/or direct phone calls for appointments. This includes reminders for routine scr eening mammograms, diagnostic mammograms, or other Breast Imaging Interventions when appropriate. Th is patient will be placed in the appropriate reminder system. TECHNICAL DOCUMENTATION: FINDING NUMBER: (1) ASSESSMENT: (1) JOB ID: [id number] 2010 [employer]- All Rights Reserved Reading location - IP/workstation name: [email or web address]
== END ==
LOC: RAD 11:07
PROVIDERS: ATTEND Internal Medicine Geriatric Medicine
DX: Z12.31 Encounter for screening mammogram for malignant neoplasm of breast (principal)
CPT/HCPCS: 77063; 77067